=== PATIENT | female | born 1995 | race Caucasian/White ===

== ENCOUNTER 2019-12-25 07:41 | Outpatient (REF) | payer OTHER, SELFPAY | END 2019-12-25 07:42 | disposition home or self-care (01) | LOC: HO.LAB 07:41 | PROVIDERS: Visit Provider Internal Medicine | DX: Z20.828 Contact with and (suspected) exposure to other viral communicable diseases (principal) | CPT/HCPCS: 87635 ==

== ENCOUNTER 2020-12-28 19:05 | Emergency (ER) | payer OTHER, SELFPAY ==
[2020-12-28 19:14] VITALS: BP 108/70; PULSE 78; RESP 16; TEMP 36.8; O2SAT 100; BMI 20.9
--- NOTE | 2020-12-28 19:33 | ECG_ITS ---
Test Reason : CLEARANCE Blood Pressure : / mmHG Vent. Rate : 072 BPM Atrial Rate : 072 BPM P-R Int : 160 ms QRS Dur : 084 ms QT Int : 412 ms P-R-T Axes : 058 069 006 degrees QTc Int : 451 ms Normal sinus rhythm with sinus arrhythmia Normal ECG No previous ECGs available Referred By: Arlet Orellana Electronically Signed By:MARY REBOLLEDO MD
[2020-12-28 19:35] VITALS: RESP 15
[2020-12-28] MEDS: Haloperidol Lactate 5 MG/ML VIAL IM (19:35)
[2020-12-28] MEDS: LORazepam 2 MG/ML VIAL IM (19:35)
[2020-12-28 19:50] VITALS: RESP 17
--- NOTE | 2020-12-28 20:02 | ED_ITS ---
HPI - Psych General Chief Complaint: Psychiatric Symptoms Stated Complaint: depression/si Time Seen by Provider: 12/28/20 19:31 Source: patient, EMS and police Mode of arrival: EMS Limitations: no limitations and other (Anxiety and agitation) History of Present Illness HPI Narrative: 25-year-old female came in for psych evaluation. This is a 25-year-old female came in by police/ambulance for agitation, suicidal attempt patient overdosed on 8 pills of Seroquel 50 mg each of a total of 400 mg, patient brought in by the police/EMS patient is very agitated, combative and belligerent to the staff, patient needed to be Section 12 and required also chemical restraint with medication patient received 5 mg of Haldol and 2 mg of Ativan. Unable to obtain history from the patient at this point because of agitation Related Data Allergies Allergy/AdvReac Type Severity Reaction Status Date / Time No Known Allergies Allergy Verified 12/28/20 19:32 Review of Systems Review of Systems: All other systems are reviewed and are negative Constitutional: Reports as per HPI and Reports no additional constitutional complaints Eyes: Reports as per HPI and Reports no additional eye complaints Reports system reviewed and no additional complaints, except as documented Cardiovascular: Reports as per HPI and Reports no additional cardiovascular complaints Respiratory: Reports as per HPI and Reports no additional respiratory complaints Gastrointestinal: Reports as per HPI and Reports no additional gastrointestinal complaints Genitourinary: Reports no additional female genitourinary complaints Musculoskeletal: Reports no additional musculoskeletal complaints Skin/Breast: Reports system reviewed and no additional complaints, except as docu Psychiatric: Reports no additional psychiatric complaints Endocrine: Reports no additional endocrine complaints Hematologic/Lymphatic: Reports no additional hematologic/lymphatic complaints Allergic/Immunologic: Reports no additional allergic/immunologic complaints Reports system reviewed and no additional complaints, except as documented and Reports Abnormal speech present [facility] Social History Social History Advance Directives: No Advance Directives Information Provided: Yes Patient : No Physical Exam Vital Signs: Vital Signs: Last Vital Signs Temp 98.3 F 12/28/20 19:14 Pulse 78 12/28/20 19:14 Resp 16 12/28/20 20:35 BP 108/70 12/28/20 19:14 Pulse Ox 100 12/28/20 19:14 Body Mass Index 20.9 Vital signs have been reviewed as appeared to be correct. Blood pressure normal. Heart rate normal. Respiration rate normal. Temperature normal. Oxygen saturation normal. Appearance: Alert. Oriented X3. Agitated and anxious. Head: Normal external exam. Normocephalic. Atraumatic. No Foley signs noted. No raccoon eyes noted Eyes: PERRLA. EOMI. Conjunctiva and sclera normal. Eyelids normal. ENT: TM's Normal. Pharynx normal. Uvula midline. Moist mucous membranes. No trismus noted. No drooling noted. No muffled voice noted. Neck: Normal inspection. Neck supple. FROM. No adenopathy. Thyroid Normal. No meningeal signs. No neck mass noted. CVS: Normal heart rate and rhythm. Heart sound normal. No murmurs noted. Pulses normal throughout. Respiratory: No respiratory distress. Painless inspiration. Breath sounds normal. No wheezes/rales/rhonchi noted. Chest nontender. No accessory muscle usage noted or decreased air movement noted. Abdomen: Soft and nontender. Bowel sounds normal in all 4 quadrants. No distention noted. No organomegaly noted. No visible injury noted. Back: No CVA tenderness. Full range of motion noted. Skin: Skin warm and dry. Normal skin color. Normal skin turgor. No rashes/lesions/lacerations noted. Extremities: No lower extremity edema. Extremities exhibit normal range of motion. Extremities nontender. Neuro: Oriented X 3. Cranial nerve exam: II-XII are grossly intact No motor deficit. No sensory deficit. Reflexes normal. Patient Appearance: Appropriate Patient Orientation: Person, Place, Time and Situation Level of Consciousness: Awake, Appropriate and Alert Patient Behavior: Talkative, not Cooperative. Mood Description: Depressed. Affect Description: Flat. Patient Cognition Impaired: No Ability to Follow Directions: No Speech Pattern: Spontaneous Speech Memory Description: Intact Hallucinations: Not present. Delusions: Not Present Thought Process: Not Logical. Thought Content: Unremarkable Depressive Symptoms: Increased anxiety. Judgement: Poor. Course Course Course Narrative: Assessment and plan. 25-year-old female came in after attempt suicide by taking 8 pills of Seroquel 50 mg each, patient initially was combative, belligerent, in cooperative patient needed chemical restraint with Haldol/Ativan, patient now is calm and sleeping, poison control was consulted and input is appreciated patient can be medically cleared if she has normal EKG. Patient was observed under my medical observa tion patient remained hemodynamically stable. Consider BHN evaluation now. Reevaluation(s) Reevaluation #1: Physician observation started at 22:30 . Patient placed in physician observation because the patient needed more time for medication to work and to see BHN, patient's vital sign were stable, patient is alert and or iented , neuro exam unchanged, unremarkable rest of physical exam. MDM - Psych Medical Records Attestation: I reviewed the patient's medical records. Lab Data Attestation: I reviewed the patient's lab results. Result diagrams: 12/28/20 22:16 12/28/20 22:16 Labs: Lab Results 12/28/20 12/28/20 12/28/20 Range/Units 20:48 20:48 20:49 WBC (4.8-10.8) X10*3/uL RBC (4.20-5.50) X10*6/uL Hgb (12.0-16.0) g/dl Hct (37-47) % MCV (80-98) fL MCH (27.0-33.0) pg MCHC (31.0-35.0) g/dl RDW (11.0-16.0) % Plt Count (160-400) X10*3/uL MPV (9.4-12.3) fL Immature Gran % (Auto) (0.0-0.4) % Neut % (Auto) (45-73) % Lymph % (Auto) (20-40) % [place] % (Auto) (2-11) % Eos % (Auto) (0-4) % Baso % (Auto) (0-2) % Lymph # (Auto) (1.2-4.9) X10*3/uL [place] # (Auto) (0.1-1.2) X10*3/uL Eos # (Auto) (0.0-0.4) X10*3/uL Baso # (Auto) (0.0-0.2) X10*3/uL Abs Immat Gran (auto) (0.00-0.03) X10*3/uL Absolute Neuts (auto) (2.0-8.3) X10*3/uL Absolute Nucleated RBC (0.0-0.012) X10*3/uL Nucleated RBC % (auto) (0.0-0.2) /100WBC Urine Color Urine Appearance Urine pH (5.0-8.0) Ur Specific [place] (1.005-1.025) Urine Protein (NEG-TRACE) MG/DL Urine Glucose (UA) (NEG) MG/DL Urine Ketones (NEG) MG/DL Urine Blood (NEG) Urine Nitrite (NEG) Ur Leukocyte Esterase (NEG) Urine Test NEGATIVE (NEGATIVE) Urine Opiates Screen Not Detected (Not Detect) Urine Fentanyl Screen Not Detected (Not Detect) Ur Barbiturates Screen Not Detected (Not Detect) Ur Phencyclidine Scrn Not Detected (Not Detect) Ur Amphetamines Screen Not Detected (Not Detect) U Benzodiazepines Scrn Not Detected (Not Detect) Urine Cocaine Screen Not Detected (Not Detect) U Marijuana (THC) Screen POSITIVE H (Not Detect) Ethyl Alcohol mg/dL COVID-19 (ARMANDO) Negative (Negative) COVID-19 Clin Com See Note 12/28/20 12/28/20 12/28/20 Range/Units 20:49 22:16 22:16 WBC 11.8 H (4.8-10.8) X10*3/uL RBC 4.61 (4.20-5.50) X10*6/uL Hgb 13.1 (12.0-16.0) g/dl Hct 39.4 (37-47) % MCV 85.5 (80-98) fL MCH 28.4 (27.0-33.0) pg MCHC 33.2 (31.0-35.0) g/dl RDW 12.5 (11.0-16.0) % Plt Count 228 (160-400) X10*3/uL MPV 9.4 (9.4-12.3) fL Immature Gran % (Auto) 0.3 (0.0-0.4) % Neut % (Auto) 83.7 H (45-73) % Lymph % (Auto) 10.8 L (20-40) % [place] % (Auto) 4.7 (2-11) % Eos % (Auto) 0.3 (0-4) % Baso % (Auto) 0.2 (0-2) % Lymph # (Auto) 1.3 (1.2-4.9) X10*3/uL [place] # (Auto) 0.6 (0.1-1.2) X10*3/uL Eos # (Auto) 0.0 (0.0-0.4) X10*3/uL Baso # (Auto) 0.0 (0.0-0.2) X10*3/uL Abs Immat Gran (auto) 0.04 H (0.00-0.03) X10*3/uL Absolute Neuts (auto) 9.9 H (2.0-8.3) X10*3/uL Absolute Nucleated RBC 0.000 (0.0-0.012) X10*3/uL Nucleated RBC % (auto) 0.0 (0.0-0.2) /100WBC Urine Color YELLOW Urine Appearance CLEAR Urine pH 6.5 (5.0-8.0) Ur Specific [place] 1.015 (1.005-1.025) Urine Protein NEG (NEG-TRACE) MG/DL Urine Glucose (UA) NEG (NEG) MG/DL Urine Ketones NEG (NEG) MG/DL Urine Blood NEG (NEG) Urine Nitrite NEG (NEG) Ur Leukocyte Esterase NEG (NEG) Urine Test (NEGATIVE) Urine Opiates Screen (Not Detect) Urine Fentanyl Screen (Not Detect) Ur Barbiturates Screen (Not Detect) Ur Phencyclidine Scrn (Not Detect) Ur Amphetamines Screen (Not Detect) U Benzodiazepines Scrn (Not Detect) Urine Cocaine Screen (Not Detect) U Marijuana (THC) Screen (Not Detect) Ethyl Alcohol < 10 mg/dL COVID-19 (ARMANDO) (Negative) COVID-19 Clin Com ECG Data Interpretation: Normal sinus rhythm at 72 beats per minute, normal axis deviation, normal intervals, no ST-T changes. Discharge Plan Discharge Clinical Impression: Depression, Overdose
[2020-12-28 20:05] VITALS: RESP 16
--- NOTE | 2020-12-28 20:13 | PC.NURSE ---
Patient was brought in by EMS for suicidal attempt by overdosing on Serequel 50 mg 8 tablets. patient uncooperative, loud disruptive. violent, combative, physically assaultive towards staff member, provider tried to calm down, ordered Ativan 2 mg IM, Haldol 5 mg IM, and 4 point restraint at 1935. poison control notified, will continue to monitor.
[2020-12-28 20:20] VITALS: RESP 16
[2020-12-28 20:35] VITALS: RESP 16
[2020-12-28 21:06] LABS: UPreg QC Valid YES; Urine Pregnancy NEGATIVE (NEGATIVE)
[2020-12-28 21:06] LABS: Appearance Urine CLEAR; Color Urine YELLOW; Glucose Urine UA NEG (NEG); Leukocyte Esterase Urine NEG (NEG); Nitrite Urine NEG (NEG); PH 6.5 (5.0-8.0); Specific Gravity - Urine 1.015 (1.005-1.025); Urine Blood NEG (NEG); Urine Ketones NEG (NEG); Urine Protein NEG (NEG-TRACE)
[2020-12-28 21:21] LABS: COVID-19 Test Negative (Negative)
[2020-12-28 21:21] LABS: Amphetamine Screen Urine Not Detected (Not Detect); Barbiturates, Urine Not Detected (Not Detect); Benzodiazepines Screen Urine Not Detected (Not Detect); Cannabinoid Screen Urine POSITIVE (Not Detect); Cocaine Screen Urine Not Detected (Not Detect); Fentanyl, urine Not Detected (Not Detect); Opiate Screen Urine Not Detected (Not Detect); Phencyclidine Screen Urine Not Detected (Not Detect)
[2020-12-28 22:30] LABS: MANUAL DIFF FLAG NO
[2020-12-28 22:31] LABS: Basophils Percent Auto 0.2 % (0-2); Eosinophils Percent Auto 0.3 % (0-4); Hematocrit 39.4 % (37-47); Hemoglobin 13.1 g/dl (12.0-16.0); Imm Gran Abs Auto 0.04 X10*3/uL (0.00-0.03); Imm Gran Pct Auto 0.3 % (0.0-0.4); Lymphocytes Absolute Auto 1.3 X10*3/uL (1.2-4.9); Lymphocytes Percent Auto 10.8 % (20-40); Mean Corpuscular HGB Conc 33.2 g/dl (31.0-35.0); Mean Corpuscular Hemoglobin 28.4 pg (27.0-33.0); Mean Corpuscular Volume 85.5 fL (80-98); Mean Platelet Volume 9.4 fL (9.4-12.3); Monocytes Absolute Auto 0.6 X10*3/uL (0.1-1.2); Monocytes Percent Auto 4.7 % (2-11); Neutrophils Absolute Auto 9.9 X10*3/uL (2.0-8.3); Neutrophils Percent Auto 83.7 % (45-73); Platelet Count 228 X10*3/uL (160-400); Red Blood Count 4.61 X10*6/uL (4.20-5.50); Red Cell Distribution Width 12.5 % (11.0-16.0); White Blood Count 11.8 X10*3/uL (4.8-10.8)
[2020-12-28 22:50] LABS: Ethanol < 10 mg/dL
[2020-12-28 22:56] LABS: Alanine Aminotransferase 24 U/L (0-31); Alkaline Phosphatase 61 U/L (39-117); Anion Gap 13 (12-20); Aspartate Amino Transferase 29 U/L (5-31); Bilirubin Direct 0.4 mg/dL (0.0-0.5); Bilirubin Total 0.8 mg/dL (0.0-1.0); Blood Urea Nitrogen 14 mg/dL (9-16); Calcium 9.3 mg/dL (8.4-10.2); Carbon Dioxide 25 mmol/L (22-29); Chloride 108 mmol/L (96-108); Estimated Glomerular Filt Rate > 60; Glucose Random 119 mg/dL (60-115); Lipase 29 U/L (8-78); Potassium 3.7 mmol/L (3.3-5.1); Salicylate < 5.0 mg/dL (15-30); Sodium 142 mmol/L (135-145); Total Protein 6.7 g/dL (6.5-8.0)
[2020-12-29 00:25] LABS: Acetaminophen LAB < 1 mcg/mL (<30)
--- NOTE | 2020-12-29 05:27 | PC.NURSE ---
Patient slept through the night, no distress observed/reported, patient got seen by care team, no disposition at this time, patient is DIAZ f/u in the morning, will continue to monitor.
[2020-12-29 06:45] VITALS: BP 96/57; PULSE 72; RESP 16; TEMP 36.7; O2SAT 98
--- NOTE | 2020-12-29 14:57 | MHC.CARE ---
CARE Team received a call from [facility]. Pt does have case manger but has declined to engage thus far. CCA will reach out to Pt to see if she would like additional support.
== END 2020-12-29 14:26 | disposition home or self-care (01) ==
PROVIDERS: Emergency Provider Emergency Medicine
DX: T43.592A Poisoning by other antipsychotics and neuroleptics, intentional self-harm, initial encounter (principal); Y92.9 Unspecified place or not applicable; F32.9 Major depressive disorder, single episode, unspecified; R45.1 Restlessness and agitation; Z20.822 Contact with and (suspected) exposure to COVID-19
CPT/HCPCS: 36415; 80048; 80076; 80143; 80179; 80307; 81003; 81025; 82077; 83690; 85025; 87635; 93005; 96372; 99285; J2060

== ENCOUNTER 2021-06-17 12:03 | Emergency (ER) | payer OTHER, SELFPAY ==
--- NOTE | ~2021-06-17 | XR_ITS ---
EXAMINATIONS: XR wrist LT w scaphoid CLINICAL INFORMATION: Reason for Exam pain, fall outstretched hand COMPARISON: None VIEWS: Frontal lateral and oblique scaphoid view FINDINGS: There is no evidence of acute fracture or dislocation. The distal radius is intact. The radiocarpal, intercarpal and carpal/metacarpal joints are normal. Ulnar styloid is intact. The scapholunate joint is normal. The lunate is properly positioned. The zzifuy-icqy-qlxnndnd access is normal. The scaphoid bone is a properly articulating. XR/XR wrist LT w scaphoid IMPRESSION: No fracture.
[2021-06-17 12:12] VITALS: BP 133/83; PULSE 119; RESP 16; TEMP 37.2; O2SAT 99; BMI 28.0
--- NOTE | 2021-06-17 12:54 | ED.URI ---
HPI - URI/Sore Throat General Chief Complaint: Nausea/Vomiting/Diarrhea Stated Complaint: Flu symptoms/L wrist pain Time Seen by Provider: 06/17/21 12:40 Source: patient Mode of arrival: ambulatory Limitations: no limitations History of Present Illness HPI Narrative: Patient is a 25-year-old female past medical history of mild intermittent asthma. She presents emergency department for evaluation of intermittently productive cough, shortness of breath, tactile fevers, and nausea vomiting for 4 days. She has been able to tolerate fluids for the past 2 days without vomiting. She reports her significant other became ill around the same time and had symptoms for 2 days. She had at home COVID-19 test which she reports was negative 3 days ago. She denies headache, ear pain, sore throat, chest pain, abdominal pain, diarrhea, constipation, dysuria, urinary frequency/hesitancy/urgency, possibility of , generalized weakness. Additionally, she reports that she fell last night, tripped over her blanket while getting out of bed landing on to her left hand which was outstretched. She has some mild swelling and pain to the left wrist particularly with flexion and extension Related Data Home Medications Medication Instructions Recorded Confirmed guanfacine 1 mg tablet 1 mg PO DAILY 12/29/20 12/29/20 hydroxyzine HCl 25 mg tablet 25 mg PO BID PRN 12/29/20 12/29/20 lamotrigine 150 mg tablet 150 mg PO DAILY 12/29/20 12/29/20 multivitamin 1 tab PO DAILY 12/29/20 12/29/20 quetiapine 25 mg tablet 50 mg PO BEDTIME PRN 12/29/20 12/29/20 quetiapine 50 mg tablet,extended 50 mg PO BEDTIME 12/29/20 12/29/20 release 24 hr Previous Rx's Medication Instructions Recorded albuterol sulfate 90 mcg/actuation 2 puff INHALATION Q4-6H PRN #6.7 g 06/17/21 aerosol inhaler Allergies Allergy/AdvReac Type Severity Reaction Status Date / Time No Known Allergies Allergy Verified 05/25/21 14:11 Review of Systems Review of Systems: Constitutional : Positive tactile Fever, No Chills ENT/Mouth : No Hoarseness, No sore throat, No Rhinorrhea Eyes: No Redness, No Discharge, No Vision Changes Cardiovascular : No Chest Pain, positive SOB, no Dyspnea on Exertion, No Edema Respiratory : positive Cough, No Sputum, no Wheezing, Gastrointestinal : Positive Nausea, positive Vomiting, No Diarrhea, No abdominal Pain Genitourinary : No Dysuria, No Hematuria Musculoskeletal : Positive left wrist pain Skin : No rash Neuro : No Weakness, No Numbness, No Headache Psych : No anxiety, depression Heme/Lymph: No Bruising, No Bleeding Endocrine : No Polyuria, No Polydipsia Yes all other systems are reviewed and are negative [facility] Past Medical History Attestation statement: The following information was validated with the patient. Source: old records reviewed Social History Social History Alcohol intake: never Patient Tobacco Use Status: Never used Tobacco Use of substances other than those prescribed or required for medical reasons: No Advance Directives: No Advance Directives Information Provided: No Patient : No Physical Exam Vital Signs: Vital Signs: Last Vital Signs Temp 98.3 F 06/17/21 13:25 Pulse 81 06/17/21 13:25 Resp 18 06/17/21 13:25 BP 112/78 06/17/21 13:25 Pulse Ox 99 06/17/21 13:25 BMI result Body Mass Index 28.0 Vital signs have been reviewed and appeared to be correct. Blood pressure normal.? Initial tachycardia during triage 119, pulse 86 during exam. Respiration rate normal. Temperature normal.? Oxygen saturation normal. Appearance: Alert.?Oriented to person, place and time. No acute distress.?Normal affect. Eyes: Pupils equal, round and reactive to light.? ENT: Pharynx normal.?? Neck: Normal inspection.? Neck supple.?? CVS: Heart sounds normal. Normal heart rate and rhythm.? Pulses normal.?? Respiratory: No respiratory distress.? Lung sounds clear to auscultation bilaterally?? Abdomen: Soft and non-tender. Normoactive bowel sounds. No pulsatile mass.?? Skin: Skin warm and dry.? Normal skin color.? Normal skin turgor.?? Extremities: No lower extremity edema.? Decreased AROM with flexion-extension of left wrist, palpable 2+ radial pulse, neurologically intact Neuro: Moves all extremities spontaneously. Sensation intact bilaterally. No focal neuro deficits. Ambulates with normal steady gait. Course Course Course Narrative: Patient is a 25-year-old female being evaluated for upper respiratory and GI symptoms. She is well appearing, nontoxic, afebrile. Initial tachycardia 119 during triage however during exam heart rate down to 86. Given sick exposure, will obtain COVID-19 and influenza testing. Regarding fall on outstretched hand and pain to left wrist, with decreased AROM of flexion and extension were obtained XR to evaluate for fracture. Reevaluation(s) Reevaluation #1: Influenza a testing is positive, COVID-19 is negative. Discussed plan care for discharge home, conservative treatment, discussed reasons to return back to the emergency department, patient is agreeable with plan of care. X- ray of the left wrist is unremarkable, no acute fracture dislocation, we did discuss that should her pain persist over the next 1-2 weeks she should follow-up with her primary care provider for repeat imaging. MDM - URI/Sore Throat Medical Records Attestation: I reviewed the patient's medical records. Lab Data Attestation: I reviewed the patient's lab results. Labs: Lab Results 06/17/21 06/17/21 Range/Units 13:22 13:22 COVID-19 (ARMANDO) Negative (Negative) COVID-19 Clin Com See Note Influenza Type A (LAINE) Positive A (Negative) Influenza Type B (LAINE) Negative (Negative) Influenza A & B Note See Note Imaging Data L wrist XR: Radiologist's impression: XR/XR wrist LT w scaphoid IMPRESSION: No fracture. Discharge Plan Discharge Clinical Impression: Influenza A Patient Disposition: Home, Self-Care Instructions: Influenza (ED) Additional Instructions: Please return to the emergency department with any new or worsening symptoms or concerns. Prescriptions: New albuterol sulfate 90 mcg/actuation HFA aerosol inhaler 2 puff inhalation Q4-6H PRN (Reason: shortness of breath or wheezing) Qty: 6.7 0RF No Action multivitamin [Multi-Vitamin] Tablet 1 tab PO DAILY 0RF quetiapine 25 mg Tablet 50 mg PO BEDTIME PRN (Reason: Anxiety) 0RF lamotrigine 150 mg Tablet 150 mg PO DAILY 0RF guanfacine [Tenex] 1 mg Tablet 1 mg PO DAILY 0RF hydroxyzine HCl 25 mg Tablet 25 mg PO BID PRN (Reason: Anxiety) 0RF quetiapine 50 mg Tablet Extended Release 24 Hr 50 mg PO BEDTIME 0RF Interventions: ED Discharge Assessment Last Done: 06/17/21 14:09 Discharge Date/Time: 06/17/21 14:09
[2021-06-17 13:25] VITALS: BP 112/78; PULSE 81; RESP 18; TEMP 36.8; O2SAT 99
--- NOTE | 2021-06-17 13:26 | PC.NURSE ---
patient a&ox3, vss, covid swabs obtained, pt denies pain states her wrist is uncomfortable and her chest is uncomfortable when she coughs- however denies actual pain, call spicer within reach, will continue to monitor
[2021-06-17 13:46] LABS: COVID-19 Test Negative (Negative); IDNOW Serial# 16C4AD1C
[2021-06-17 13:48] LABS: IDNOW Serial# 55D5AD1C; Influenza A Positive (Negative); Influenza B2 Negative (Negative)
== END 2021-06-17 14:09 | disposition home or self-care (01) ==
PROVIDERS: Nurse Practitioner Family; Emergency Provider Emergency Medicine; PCP Internal Medicine
DX: J11.1 Influenza due to unidentified influenza virus with other respiratory manifestations (principal); R50.9 Fever, unspecified; M25.532 Pain in left wrist
CPT/HCPCS: 73110; 87502; 87635; 99283; 99284

== ENCOUNTER 2022-01-17 12:28 | Emergency (ER) | payer OTHER, SELFPAY ==
--- NOTE | ~2022-01-17 | XR_ITS ---
EXAMINATION: XR SHOULDER, LEFT CLINICAL INFORMATION: Pain after falling COMPARISON: None TECHNIQUE: AP external rotation, Grashey, scapular Y, and axillary views of the left shoulder. FINDINGS: Nondisplaced fracture noted through the greater tuberosity. The left shoulder however is not dislocated. No other fractures are seen. The AC joint is intact. XR/XR shoulder LT min 2V IMPRESSION: Fracture through the greater tuberosity as described.
[2022-01-17 14:36] VITALS: BP 110/76; PULSE 84; RESP 16; TEMP 37.4; O2SAT 99; BMI 29.8
--- NOTE | 2022-01-17 14:39 | ED_ITS ---
HPI - Extremity Problem General Chief complaint: Extremity Injury, Upper Stated complaint: L Shoulder Injury 01/17/22 Time Seen by Provider: 01/17/22 15:24 Related Data Home Medications Medication Instructions Recorded Confirmed guanfacine 1 mg tablet 1 mg PO DAILY 12/29/20 12/29/20 hydroxyzine HCl 25 mg tablet 25 mg PO BID PRN Anxiety 12/29/20 12/29/20 lamotrigine 150 mg tablet 150 mg PO DAILY 12/29/20 12/29/20 multivitamin 1 tab PO DAILY 12/29/20 12/29/20 quetiapine 25 mg tablet 50 mg PO BEDTIME PRN Anxiety 12/29/20 12/29/20 quetiapine 50 mg tablet,extended 50 mg PO BEDTIME 12/29/20 12/29/20 release 24 hr Previous Rx's Medication Instructions Recorded albuterol sulfate 90 mcg/actuation 2 puff inhalation Q4-6H PRN 06/17/21 aerosol inhaler shortness of breath or wheezing #6.7 grams ibuprofen 600 mg tablet 600 mg PO Q8H PRN pain #30 tabs 01/17/22 oxycodone 5 mg tablet 5 mg PO Q8H PRN pain #8 tabs 01/17/22 Allergies Allergy/AdvReac Type Severity Reaction Status Date / Time No Known Allergies Allergy Verified 05/25/21 14:11 [facility] Social History Social History Alcohol intake: never Patient Tobacco Use Status: Never used Tobacco Advance Directives: No Advance Directives Information Provided: Yes Physical Exam Vital Signs: Vital Signs: Last Vital Signs Temp 99.4 F 01/17/22 14:36 Pulse 84 01/17/22 14:36 Resp 16 01/17/22 14:36 BP 110/76 01/17/22 14:36 Pulse Ox 99 01/17/22 14:36 O2 Del Method 01/17/22 14:36 BMI result Body Mass Index 29.8 Course Course Course Narrative: RYLIE. Patient presents to the ED for left shoulder pain. patient states while trying to break her fall unto the wall she put her shoulder out unto the wall and it bended in an awkward position. patient tripeed over blanket. patient den ies hitting head, loss of consisouness, or falling to the ground. patient sent for xray Medications Administered Discontinued Medications Generic Name Dose Route Start Last Admin Trade Name Freq PRN Reason Stop Dose Admin Ibuprofen 800 mg 01/17/22 14:41 01/17/22 15:19 Ibuprofen 800 Mg Tablet PO 01/17/22 14:42 800 mg ONCE ONE Administration Discharge Plan Discharge Clinical Impression: Closed fracture of greater tuberosity of humerus Patient Disposition: Home, Self-Care Instructions: Arm Fracture in Adults (ED) Additional Instructions: rest, elevation, sling for comfort Prescriptions: New ibuprofen 600 mg tablet 600 mg PO Q8H PRN (Reason: pain) Qty: 30 0RF oxycodone 5 mg tablet 5 mg PO Q8H PRN (Reason: pain) Qty: 8 0RF Rx Instructions: Partial Fill upon patient request. No Action multivitamin [Multi-Vitamin] Tablet 1 tab PO DAILY quetiapine 25 mg Tablet 50 mg PO BEDTIME PRN (Reason: Anxiety) lamotrigine 150 mg Tablet 150 mg PO DAILY guanfacine [Tenex] 1 mg Tablet 1 mg PO DAILY hydroxyzine HCl 25 mg Tablet 25 mg PO BID PRN (Reason: Anxiety) quetiapine 50 mg Tablet Extended Release 24 Hr 50 mg PO BEDTIME albuterol sulfate 90 mcg/actuation HFA aerosol inhaler 2 puff inhalation Q4-6H PRN (Reason: shortness of breath or wheezing) Qty: 6.7 0RF Referrals: [facility] [Provider Group] - 3 days Stand Alone Forms: Work/School Release Interventions: ED Discharge Assessment Last Done: 01/17/22 16:36 Discharge Date/Time: 01/17/22 16:37
[2022-01-17] MEDS: Ibuprofen 800 MG TABLET PO (15:19)
--- OUTSIDE RECORDS SUMMARY | 2022-01-17 15:21 | XMS_ITS | Continuity of Care Document ---
:1995 Author Organization [facility] [address]ter Address [address] [place] [address]- Care Team Providers Name Role Phone Natalee Olmedo MD, Marcelo Primary Care Physician Encounter [facility] Date(s): 03/23/21 - 04/23/[address] [address]- Attending Physician: Vickey Guerrero MD Referring Physician: Not on Staff, Referring MD Allergies, Adverse Reactions, Alerts Substance Reaction Severity Status shellfish Active Shrimp Active Medications QUEtiapine 100 mg oral tablet 100 mg, 1, tablet, By Mouth, Daily at bedtime, # 16 tablet, Refills 0, Tot. Refills 0, Maintenance, 01/31/21 11:11:00 EST, Route to Pharmacy Electronically, [facility], Partial fill upon patient request if the prescription is for... Start Date: 01/31/21 Status: OrderedQUEtiapine 100 mg oral tablet 100 mg, 1, tablet, By Mouth, Every 4 hours, PRN, # 16 tablet, Refills 0, Tot. Refills 0, Maintenance, Agitation, 01/31/21 11:11:00 EST, Route to Pharmacy Electronically, [facility], Partial fill upon patient request if the prescri... Start Date: 01/31/21 Status: OrderedQUEtiapine 50 mg oral tablet 1 tablet = 50 mg, By Mouth, 2 times a day, take at 0900 and 1500, # 32 tablet, 0 Refills, Maintenance, 01/31/21 11:13:00 EST, Tablet, [facility], Partial fill upon patient request if the prescription is for a schedule II opioid dr... Start Date: 01/31/21 Status: Ordered
--- OUTSIDE RECORDS SUMMARY | 2022-01-17 15:21 | XMS_ITS | Continuity of Care Document ---
:1995 Author Organization [facility] Inpatient [facility] Address [address] [place] [address]- Care Team Providers Name Role Phone Tom MCWILLIAMS, Jewell Feliciano Primary Care Physician Encounter [facility] Date(s): 01/26/21 - 01/31/21 [facility] Inpatient Psych[facility]ry [address] [place] [address]- Discharge Disposition: A-D/C Home Attending Physician: Vickey Guerrero MD Admitting Physician: Vickey Guerrero MD Referring Physician: Vickey Guerrero MD Allergies, Adverse Reactions, Alerts Substance Reaction Severity Status shellfish Active Shrimp Active Medications QUEtiapine 100 mg oral tablet 100 mg, 1, tablet, By Mouth, Daily at bedtime, # 16 tablet, Refills 0, Tot. Refills 0, Maintenance, 01/31/21 11:11:00 EST, Route to Pharmacy Electronically, [facility], Partial fill upon patient request if the prescription is for... Start Date: 01/31/21 Status: OrderedQUEtiapine 100 mg oral tablet 100 mg, 1, tablet, By Mouth, Every 4 hours, PRN, # 16 tablet, Refills 0, Tot. Refills 0, Maintenance, Agitation, 01/31/21 11:11:00 EST, Route to Pharmacy Electronically, [facility], Partial fill upon patient request if the prescri... Start Date: 01/31/21 Status: OrderedQUEtiapine 50 mg oral tablet 1 tablet = 50 mg, By Mouth, 2 times a day, take at 0900 and 1500, # 32 tablet, 0 Refills, Maintenance, 01/31/21 11:13:00 EST, Tablet, [facility], Partial fill upon patient request if the prescription is for a schedule II opioid drYahir.. Start Date: 01/31/21 Status: Ordered Vital Signs Most recent to oldest 1 2 3 [Reference Range]: Height 170 cm 170 cm 170 cm (01/31/21 9:16 AM) (01/30/21 8:57 PM) (01/30/21 8:20 AM) Weight 78.6 kg (01/26/21 1:30 PM) Oxygen Saturation [94-100 100 % 99 % 100 % %] (01/31/21 9:16 AM) (01/30/21 8:57 PM) (01/30/21 8:20 AM) Pulse Rate [55-90 bpm] 84 bpm 89 bpm 104 bpm (01/31/21 9:16 AM) (01/30/21 8:57 PM) *H* (01/30/21 8:20 A M) Body Mass Index 27.2 [18.5-24.99] *H* (01/26/21 1:30 PM) Blood Pressure 115/75 mm Hg 115/70 mm Hg 108/75 mm Hg [90-138/55-84 mm Hg] (01/31/21 9:16 AM) (01/30/21 8:57 PM) (01/10 05/01 8:20 AM) Respiratory Rate [16-30 18 br/min 18 br/min 18 br/mi n br/min] (01/31/21 9:39 AM) (01/31/21 9:16 AM) (01/30/21 11:07 PM) Temperature [96.8-100.4 97.7 DegF 97.2 DegF 98.5 Deg F DegF] (01/31/21 9:16 AM) (01/30/21 8:57 PM) (01/30/21 8:20 AM) Mode of Delivery (Oxygen) Room air Room air Room a ir (01/31/21 9:16 AM) (01/30/21 8:57 PM) (01/29/21 10:41 PM) Blood pressure sites Arm, left Arm, left Arm, left (01/31/21 9:16 AM) (01/30/21 8:57 PM) (01/30/21 8:20 AM) Temperature Route Temporal Tympanic Femoral (01/31/21 9:16 AM) (01/30/21 8:57 PM) (01/30/21 8:20 AM) Dry Weight 78.6 kg (01/26/21 1:30 PM) Sensory deficits None (01/26/21 1:30 PM)
--- OUTSIDE RECORDS SUMMARY | 2022-01-17 15:21 | XMS_ITS | Continuity of Care Document ---
:1995 Author Organization [facility] Address [address] [place] [address]- Care Team Providers Name Role Phone Tom MCWILLIAMS, Jewell Feliciano Primary Care Physician Encounter [facility] Date(s): 01/25/21 - 01/26/[address] [address]- Discharge Disposition: A-D/C Home Attending Physician: Amina Valladares MD Admitting Physician: Delano Jara MD Referring Physician: Not on Staff, Referring MD Allergies, Adverse Reactions, Alerts Substance Reaction Severity Status shellfish Active Shrimp Active Medications melatonin 3 mg oral tablet 1 tablet = 3 mg, By Mouth, Daily at bedtime, PRN for insomnia, Take 1 - 2 tablets by mouth daily at bedtime one hour before sleep, # 30 tablet, 0 Refills, Maintenance, Tablet Start Date: 03/20/12 Status: Ordered Vital Signs Most recent to oldest 1 2 3 [Reference Range]: Height 170 cm 170 cm 170 cm (01/26/21 5:49 AM) (01/26/21 1:51 AM) (01/25/21 8:36 PM) Weight 78.6 kg 56.8 kg (01/25/21 8:36 PM) (01/25/21 3:05 PM) Oxygen Saturation [94-100 %] 100 % 100 % 100 % (01/26/21 5:49 AM) (01/26/21 1:51 AM) (01/25/21 8:36 PM) Pulse Rate [55-90 bpm] 99 bpm 80 bpm 81 bpm *H* (01/26/21 1:51 AM) (01/25/21 8:3 6 PM) (01/26/21 5:49 AM) Body Mass Index [18.5-24.99] 27.2 *H* (01/25/21 8:36 PM) Blood Pressure [90-138/55-84 114/63 mm Hg 119/72 mm Hg 98/ 63 mm Hg mm Hg] (01/26/21 5:49 AM) (01/26/21 1:51 AM) (01/25/21 8:36 PM) Respiratory Rate [16-30 18 br/min 18 br/min 18 br/mi n br/min] (01/26/21 5:49 AM) (01/26/21 1:51 AM) (01/25/21 8:36 PM) Temperature [96.8-100.4 97.9 DegF 98.5 DegF 97.9 Deg F DegF] (01/26/21 5:49 AM) (01/26/21 1:51 AM) (01/25/21 8:36 PM) Mode of Delivery (Oxygen) Room air Room air Room a ir (01/26/21 5:49 AM) (01/26/21 1:51 AM) (01/25/21 8:36 PM) Blood pressure sites Arm, right Arm, right Arm, left (01/26/21 5:49 AM) (01/26/21 1:51 AM) (01/25/21 8:36 PM) Temperature Route Oral Oral Axillary (01/26/21 5:49 AM) (01/26/21 1:51 AM) (01/25/21 8:36 PM) Dry Weight 56.8 kg (01/25/21 3:05 PM)
--- NOTE | 2022-01-17 15:47 | ED.EXTPRO ---
HPI - Extremity Problem General Chief complaint: Extremity Injury, Upper Stated complaint: L Shoulder Injury 01/17/22 Time Seen by Provider: 01/17/22 15:24 Source: patient Mode of arrival: ambulatory Limitations: no limitations History of Present Illness HPI Narrative: 26-year-old female [id number] here with left shoulder pain after fall which occurred just prior to arrival. Patient reports she was sitting on the side of her bed with her legs crossed and a blanket underneath them. She tried the that quickly and then realized her legs were caught causing her to fall forward throwing her left arm out to catch herself causing a hyperextension of the extremity. Patient denies head strike or loss of consciousness. Patient denies any associated weakness, numbness, tingling of the extremity. Related Data Home Medications Medication Instructions Recorded Confirmed guanfacine 1 mg tablet 1 mg PO DAILY 12/29/20 12/29/20 hydroxyzine HCl 25 mg tablet 25 mg PO BID PRN Anxiety 12/29/20 12/29/20 lamotrigine 150 mg tablet 150 mg PO DAILY 12/29/20 12/29/20 multivitamin 1 tab PO DAILY 12/29/20 12/29/20 quetiapine 25 mg tablet 50 mg PO BEDTIME PRN Anxiety 12/29/20 12/29/20 quetiapine 50 mg tablet,extended 50 mg PO BEDTIME 12/29/20 12/29/20 release 24 hr Previous Rx's Medication Instructions Recorded albuterol sulfate 90 mcg/actuation 2 puff inhalation Q4-6H PRN 06/17/21 aerosol inhaler shortness of breath or wheezing #6.7 grams ibuprofen 600 mg tablet 600 mg PO Q8H PRN pain #30 tabs 01/17/22 oxycodone 5 mg tablet 5 mg PO Q8H PRN pain #8 tabs 01/17/22 Allergies Allergy/AdvReac Type Severity Reaction Status Date / Time No Known Allergies Allergy Verified 05/25/21 14:11 Review of Systems Review of Systems: Yes all other systems are reviewed and are negative Constitutional: Constitutional: Reports no additional constitutional complaints, Denies body ache(s), Denies chills, Denies fever(s), Denies headache(s) and Denies weakness Eyes: Eyes: Reports no additional eye complaints and Denies change in vision ENT: Reports system reviewed and no additional complaints, except as documented, Denies dizziness, Denies headache(s), Denies nasal congestion, Denies nasal discharge and Denies neck pain Cardiovascular: Cardiovascular: Reports no additional cardiovascular complaints, Denies chest pain, Denies leg edema and Denies dyspnea Respiratory: Respiratory: Reports no additional respiratory complaints, Denies cough and Denies dyspnea Gastrointestinal: Gastrointestinal: Reports no additional gastrointestinal complaints, Denies abdominal pain, Denies diarrhea, Denies nausea and Denies vomiting Genitourinary: Genitourinary: Reports no additional female genitourinary complaints and Denies urinary incontinence Musculoskeletal: Musculoskeletal: Reports no additional musculoskeletal complaints, Denies back pain, Reports arthralgias, Reports joint swelling, Reports limited range of motion, Denies neck pain, Denies numbness and Denies tingling Integumentary/Breasts: Skin/Breast: Reports system reviewed and no additional complaints, except as docu and Denies rash Neurologic: Reports system reviewed and no additional complaints, except as documented, Denies Abnormal speech present, Denies dizziness, Denies headache(s), Denies numbness, Denies tingling and Denies weakness [facility] Past Medical History Attestation statement: The following information was validated with the patient. Source: old records reviewed and nursing notes reviewed Social History Social History Alcohol intake: never Patient Tobacco Use Status: Never used Tobacco Advance Directives: No Advance Directives Information Provided: Yes Physical Exam Vital Signs: Vital Signs: Last Vital Signs Temp 99.4 F 01/17/22 14:36 Pulse 84 01/17/22 14:36 Resp 16 01/17/22 14:36 BP 110/76 01/17/22 14:36 Pulse Ox 99 01/17/22 14:36 O2 Del Method 01/17/22 14:36 BMI result Body Mass Index 29.8 Const: General: cooperative, healthy appearing, comfortable and no acute distress Orientation/consciousness: patient oriented x3 Limitations: no limitations HEENT: Head: Yes normal to inspection Ears: hearing grossly normal bilaterally General nose exam: Normal external nose present Face and sinus: Yes normal facial exam Mouth: Normal oral and palatal mucosa present Throat: Yes posterior oropharynx normal Eyes: General: appearance normal, both eyes and all related structures Pupils: Equal, round and reactive pupils present Neck: Neck: Yes normal visual inspection Chest: Chest palpation & inspection: normal inspection of the chest Resp: Effort & Inspection: normal respiratory effort Auscultation: clear to auscultation bilaterally Cardio: Rate: regular rate Rhythm: regular rhythm Peripheral pulses: Peripheral pulses 2+ throughout GI: Inspection: Yes normal to inspection Palpation (GI): Soft to palpation and nontender Auscultation: normal bowel sounds Back/Spine/Pelvis: Thoracic/Lumbar Spine: thoracic and lumbar spine normal to inspection Skin: General skin exam: no rashes or lesions noted Neuro: General: patient oriented x3, no focal motor deficits and normal sensation to monofilament Cranial nerves: Yes Equal, round and reactive pupils present Cognition (Neuro): normal cognition Speech: No Abnormal speech present Gait exam (Neuro): Normal gait present Motor exam (neuro): 5/5 motor strength present throughout Extrem: Other: There is tenderness the left proximal humerus with pain with abduction of the extremity. Neurovascularly intact distally. Palpable radial and ulnar pulses. Sensation is normal. General: Yes normal to inspection Course Course Course Narrative: x-rays show FINDINGS: Nondisplaced fracture noted through the greater tuberosity. The left shoulder however is not dislocated. No other fractures are seen. The AC joint is intact.? XR/XR shoulder LT min 2V IMPRESSION: Fracture through the greater tuberosity as described. No dislocation. Placed in sling. Reviewed LETITIA f/u with orthopedics. 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 On exam patient has tenderness over the left proximal humerus with limited range of motion due to pain. Will check x-rays, provide analgesia Consider strain, fracture, dislocation Medical Records Attestation: I reviewed the patient's medical records. Imaging Data shoulder x-ray: Attestation: I personally reviewed and interpreted this imaging study as follows: Radiologist's impression: [address] [address] XRay Report Signed Patient: Connie Amaya MR#: [id number] : 1995 Acct:[id number] Age/Sex: 26 / F ADM Date: 01/17/22 Loc: HO.ED Attending Dr: Ordering Physician: Vj Logan Date of Service: 01/17/22 Procedure(s): XR shoulder LT min 2V Accession Number(s): [id number] cc: Vj Logan~ EXAMINATION: XR SHOULDER, LEFT CLINICAL INFORMATION: Pain after falling? COMPARISON: None? TECHNIQUE: AP external rotation, Grashey, scapular Y, and axillary views of the left shoulder. FINDINGS: Nondisplaced fracture noted through the greater tuberosity. The left shoulder however is not dislocated. No other fractures are seen. The AC joint is intact.? XR/XR shoulder LT min 2V IMPRESSION: Fracture through the greater tuberosity as described. Procedures Procedure Narrative Procedure Narrative: sling Discharge Plan Discharge Clinical Impression: Closed fracture of greater tuberosity of humerus Patient Disposition: Home, Self-Care Instructions: Arm Fracture in Adults (ED) Additional Instructions: rest, elevation, sling for comfort Prescriptions: New ibuprofen 600 mg tablet 600 mg PO Q8H PRN (Reason: pain) Qty: 30 0RF oxycodone 5 mg tablet 5 mg PO Q8H PRN (Reason: pain) Qty: 8 0RF Rx Instructions: Partial Fill upon patient request. No Action multivitamin [Multi-Vitamin] Tablet 1 tab PO DAILY quetiapine 25 mg Tablet 50 mg PO BEDTIME PRN (Reason: Anxiety) lamotrigine 150 mg Tablet 150 mg PO DAILY guanfacine [Tenex] 1 mg Tablet 1 mg PO DAILY hydroxyzine HCl 25 mg Tablet 25 mg PO BID PRN (Reason: Anxiety) quetiapine 50 mg Tablet Extended Release 24 Hr 50 mg PO BEDTIME albuterol sulfate 90 mcg/actuation HFA aerosol inhaler 2 puff inhalation Q4-6H PRN (Reason: shortness of breath or wheezing) Qty: 6.7 0RF Referrals: [facility] [Provider Group] - 3 days Stand Alone Forms: Work/School Release
== END 2022-01-17 16:37 | disposition home or self-care (01) ==
PROVIDERS: Emergency Provider Emergency Medicine; PCP Internal Medicine
DX: S42.252A Displaced fracture of greater tuberosity of left humerus, initial encounter for closed fracture (principal); W08.XXXA Fall from other furniture, initial encounter; Y93.9 Activity, unspecified; Y92.009 Unspecified place in unspecified non-institutional (private) residence as the place of occurrence of the external cause; Y99.9 Unspecified external cause status; Z79.899 Other long term (current) drug therapy
CPT/HCPCS: 73030; 99283

== ENCOUNTER 2022-02-05 07:52 | Outpatient (REF) | payer OTHER, SELFPAY | END 2022-02-05 07:53 | disposition home or self-care (01) | LOC: HO.HOSX 07:52 | PROVIDERS: Visit Provider Physician Assistant | DX: Z13.89 Encounter for screening for other disorder (principal) ==

== ENCOUNTER 2023-11-14 13:18 | Outpatient (REF) | payer OTHER, SELFPAY ==
[2023-11-14 17:32] LABS: HCG Quantitative < 2 mIU/mL; TSH reflex Free T4 1.03 uIU/mL (0.32-4.0)
[2023-11-17 08:47] LABS: Prolactin 10.3 ng/mL
== END 2023-11-14 13:19 | disposition home or self-care (01) ==
LOC: HO.HHCL 13:18
PROVIDERS: Visit Provider Advanced Practice Midwife
DX: N92.6 Irregular menstruation, unspecified (principal)
CPT/HCPCS: 36415; 84146; 84443; 84702

== ENCOUNTER 2024-01-27 11:13 | Outpatient (REF) | payer OTHER, SELFPAY ==
[2024-01-27 13:20] LABS: MANUAL DIFF FLAG NO
[2024-01-27 13:30] LABS: Basophils Absolute Auto 0.1 X10*3/uL (0.0-0.2); Basophils Percent Auto 0.4 % (0-2); Eosinophils Absolute Auto 0.6 X10*3/uL (0.0-0.4); Eosinophils Percent Auto 4.3 % (0-4); Hemoglobin 13.8 g/dl (12.0-16.0); Imm Gran Abs Auto 0.06 X10*3/uL (0.00-0.03); Imm Gran Pct Auto 0.5 % (0.0-0.4); Lymphocytes Absolute Auto 2.8 X10*3/uL (1.2-4.9); Lymphocytes Percent Auto 21.1 % (20-40); Mean Corpuscular HGB Conc 33.7 g/dl (31.0-35.0); Mean Corpuscular Hemoglobin 29.7 pg (27.0-33.0); Mean Corpuscular Volume 88.2 fL (80.0-98.0); Mean Platelet Volume 9.7 fL (9.4-12.3); Monocytes Absolute Auto 0.8 X10*3/uL (0.1-1.2); Monocytes Percent Auto 5.9 % (2-11); Neutrophils Absolute Auto 8.9 x10*3/uL (2.0-8.3); Neutrophils Percent Auto 67.8 % (45-73); Platelet Count 326 X10*3/uL (160-400); Red Blood Count 4.65 X10*6/uL (4.20-5.50); Red Cell Distribution Width 12.4 % (11.0-16.0); White Blood Count 13.1 X10*3/uL (4.8-10.8)
[2024-01-27 13:46] LABS: Anion Gap 11 (12-20); Blood Urea Nitrogen 15 mg/dL (9-16); Calcium 9.6 mg/dL (8.4-10.2); Carbon Dioxide 24 mmol/L (22-29); Chloride 107 mmol/L (96-108); Estimated Glomerular Filt Rate > 60; Glucose Random 82 mg/dL (60-115); Sodium 138 mmol/L (135-145)
[2024-01-27 14:08] LABS: HCG Quantitative < 2 mIU/mL; TSH reflex Free T4 0.66 uIU/mL (0.32-4.0)
[2024-01-28 06:34] LABS: CT PCR NOT DETECTED (Not Detect.); NG PCR NOT DETECTED (Not Detect.)
[2024-01-28 13:38] LABS: Bacterial Vaginosis PCR NEGATIVE (Negative); Candida Group PCR NOT DETECTED (Not Detect); Candida glab krusei PCR NOT DETECTED (Not Detect); Trichomonas vaginalis PCR NOT DETECTED (Not Detect)
== END 2024-01-27 11:14 | disposition home or self-care (01) ==
LOC: HO.HHCL 11:13
PROVIDERS: Visit Provider Internal Medicine
DX: R10.2 Pelvic and perineal pain (principal)
CPT/HCPCS: 0352U; 36415; 80048; 84443; 84702; 85025; 87491; 87591

== ENCOUNTER 2024-12-28 15:23 | Outpatient (REF) | payer OTHER, SELFPAY ==
[2024-12-28 18:23] LABS: MANUAL DIFF FLAG NO
[2024-12-28 18:36] LABS: Hematocrit 42.0 % (37.0-47.0); Hemoglobin 13.7 g/dl (12.0-16.0); Imm Gran Abs Auto 0.07 X10*3/uL (0.00-0.03); Imm Gran Pct Auto 0.5 % (0.0-0.4); Lymphocytes Absolute Auto 2.3 X10*3/uL (1.2-4.9); Mean Corpuscular HGB Conc 32.6 g/dl (31.0-35.0); Mean Corpuscular Hemoglobin 28.0 pg (27.0-33.0); Mean Corpuscular Volume 85.9 fL (80.0-98.0); NRBC Abs Auto 0.000 X10*3/uL (0.0-0.012); NRBC Pct Auto 0.0 /100WBC (0.0-0.2); Platelet Count 355 X10*3/uL (160-400); Red Blood Count 4.89 X10*6/uL (4.20-5.50); White Blood Count 15.1 X10*3/uL (4.8-10.8)
[2024-12-28 18:52] LABS: Alanine Aminotransferase 18 U/L (0-31); Albumin Level 4.3 g/dL (3.5-5.0); Alkaline Phosphatase 65 U/L (39-117); Anion Gap 14 (12-20); Aspartate Amino Transferase 29 U/L (5-31); Blood Urea Nitrogen 12 mg/dL (9-16); Calcium 9.7 mg/dL (8.4-10.2); Carbon Dioxide 23 mmol/L (22-29); Chloride 105 mmol/L (96-108); Cholesterol 185 mg/dL (<200); Estimated Glomerular Filt Rate > 60; HDL Cholesterol 44 mg/dL (>40); Potassium 3.7 mmol/L (3.3-5.1); Sodium 138 mmol/L (135-145); Total Protein 7.5 g/dL (6.5-8.0); Triglycerides 145 mg/dL (<150)
[2024-12-28 19:09] LABS: Thyroid Stimulating Hormone 2.72 uIU/mL (0.32-4.0)
[2024-12-29 08:24] LABS: Syphilis Screen Nonreactive (Nonreactive)
[2024-12-29 09:33] LABS: Bacterial Vaginosis PCR POSITIVE (Negative); Candida Group PCR NOT DETECTED (Not Detect); Candida glab krusei PCR NOT DETECTED (Not Detect); Trichomonas vaginalis PCR NOT DETECTED (Not Detect)
[2024-12-29 10:05] LABS: CT PCR NOT DETECTED (Not Detect.); NG PCR NOT DETECTED (Not Detect.)
[2024-12-29 13:17] LABS: HIV Num 1 0.05 S/CO (0.00-0.99)
== END 2024-12-28 15:24 | disposition home or self-care (01) ==
LOC: HO.CHCLDS 15:23
PROVIDERS: PCP Internal Medicine; Visit Provider Internal Medicine
DX: Z00.00 Encounter for general adult medical examination without abnormal findings (principal); Z11.3 Encounter for screening for infections with a predominantly sexual mode of transmission; Z20.2 Contact with and (suspected) exposure to infections with a predominantly sexual mode of transmission; Z11.4 Encounter for screening for human immunodeficiency virus [HIV]; Z13.29 Encounter for screening for other suspected endocrine disorder; Z13.1 Encounter for screening for diabetes mellitus; Z13.6 Encounter for screening for cardiovascular disorders; N89.8 Other specified noninflammatory disorders of vagina; N89.5 Stricture and atresia of vagina
CPT/HCPCS: 36415; 80053; 80061; 81515; 83036; 83721; 84443; 85025; 86695; 86696; 86780; 87389; 87491; 87591

== ENCOUNTER 2025-02-10 11:31 | Outpatient (REF) | payer OTHER, SELFPAY ==
[2025-02-10 15:03] LABS: Bacterial Vaginosis PCR POSITIVE (Negative); Candida Group PCR NOT DETECTED (Not Detect); Candida glab krusei PCR NOT DETECTED (Not Detect); Trichomonas vaginalis PCR NOT DETECTED (Not Detect)
== END 2025-02-10 11:32 | disposition home or self-care (01) ==
LOC: HO.CHCLDS 11:31
PROVIDERS: Visit Provider Internal Medicine
DX: N89.8 Other specified noninflammatory disorders of vagina (principal)
CPT/HCPCS: 81515

== ENCOUNTER 2025-03-09 17:52 | Emergency (ER) | payer OTHER, SELFPAY ==
[2025-03-09 17:58] VITALS: BP 136/62; PULSE 86; RESP 18; TEMP 36.8; O2SAT 98; BMI 28.4
--- NOTE | 2025-03-09 17:59 | ED.PREGNANCY ---
HPI - General Chief complaint: General Medical Stated complaint: wants test Related Data Home Medications ?Medication ?Instructions ?Recorded ?Confirmed guanfacine 1 mg tablet 1 mg PO DAILY 12/29/20 12/29/20 hydroxyzine HCl 25 mg tablet 25 mg PO BID PRN Anxiety 12/29/20 12/29/20 lamotrigine 150 mg tablet 150 mg PO DAILY 12/29/20 12/29/20 multivitamin 1 tab PO DAILY 12/29/20 12/29/20 quetiapine 25 mg tablet 50 mg PO BEDTIME PRN Anxiety 12/29/20 12/29/20 quetiapine 50 mg tablet,extended 50 mg PO BEDTIME 12/29/20 12/29/20 release 24 hr Previous Rx's ?Medication ?Instructions ?Recorded albuterol sulfate 90 mcg/actuation 2 puff inhalation Q4-6H PRN 06/17/21 aerosol inhaler shortness of breath or wheezing #6.7 grams ibuprofen 600 mg tablet 600 mg PO Q8H PRN pain #30 tabs 01/17/22 oxycodone 5 mg tablet 5 mg PO Q8H PRN pain #8 tabs 01/17/22 Allergies Allergy/AdvReac Type Severity Reaction Status Date / Time No Known Allergies Allergy Verified 03/09/25 18:01 [facility] Social History Social History Alcohol intake: never Patient Tobacco Use Status: Never used Tobacco Advance Directives: No Advance Directives Information Provided: No Do you have a plan to hurt others: No Plan Physical Exam Vital Signs: Vital Signs: Last Vital Signs Temp 98.2 F 03/09/25 17:58 Pulse 86 03/09/25 17:58 Resp 18 03/09/25 17:58 BP 136/62 03/09/25 17:58 Pulse Ox 98 03/09/25 17:58 O2 Del Method Room Air 03/09/25 17:58 BMI result Body Mass Index 28.4 Course Course Course Narrative: This is a Rapid Medical Exam performed in triage by Blanca Guzmán PA-C. Full HPI, ROS and PE to be performed by primary ED provider. 29 yo F @ about 8wks gestation based on LMP presenting to the ED c/o +home test but requesting HCG to confirm - concerned that the test lines are becoming more faint. Admits to some vaginal mucus/discharge - denies bleeding or abdominal pain. Saw OB today & they scheduled her for a US in a week & patient is unhappy with this. LMP 01/06/25 PE: NAD, abdomen is soft and nontender Plan: Labs Medical Decision Making Lab Data Labs: Lab Results 03/09/25 Range/Units 19:31 Beta HCG, Quant 29419 mIU/mL Discharge Plan Discharge Clinical Impression: Patient Disposition: Left W/O Completing Treatment Prescriptions: No Action multivitamin [Multi-Vitamin] Tablet 1 tab PO DAILY quetiapine 25 mg Tablet 50 mg PO BEDTIME PRN (Reason: Anxiety) lamotrigine 150 mg Tablet 150 mg PO DAILY guanfacine [Tenex] 1 mg Tablet 1 mg PO DAILY hydroxyzine HCl 25 mg Tablet 25 mg PO BID PRN (Reason: Anxiety) quetiapine 50 mg Tablet Extended Release 24 Hr 50 mg PO BEDTIME albuterol sulfate 90 mcg/actuation HFA aerosol inhaler 2 puff inhalation Q4-6H PRN (Reason: shortness of breath or wheezing) Qty: 6.7 0RF ibuprofen 600 mg tablet 600 mg PO Q8H PRN (Reason: pain) Qty: 30 0RF oxycodone 5 mg tablet 5 mg PO Q8H PRN (Reason: pain) Qty: 8 0RF Rx Instructions: Partial Fill upon patient request. Discharge Date/Time: 03/10/25 00:00
--- OUTSIDE RECORDS SUMMARY | 2025-03-09 22:33 | XMS_ITS | Encounter Summary ---
Author Organization [employer] Address [address] [place] [address] Care Team Providers Care Die Cast Engineer Name Role Phone Marcelo Douglass MD Primary Care Prov ider Encounter Details Date Type Department Care Team ([facility] st Contact Info) Description 12/25/2023 Orders Only [facility] [address] [place] [address] ProviderRadha MD Social History Tobacco Use Types Packs/Day Years Used Date Smoking Tobacco: Every Day Cigarettes Smokeless Tobacco: Never Alcohol Use Standard Drinks/Week Comments Defer 0 (1 standard drink = 0.6 oz pur e alcohol) Depression Answer Date Recorded Patient Health Questionnaire-9 Score 0 09/17/2022 Housing Stability Answer Date Recorded What is your housing situation today? I have frank garzon 01/07/[address] you li ve. Do you have problems with any of the following? None of the above 01/07/2023 Food Insecurity Answer Date Recorded Within the past 12 months, y ou worried that your food would run out before you got money to buy more: Never True 01/07/2023 Within the past 12 months,th e food you bought just didn't last and you didn't have enough money to get more: Never True Transportation Answer Date Recorded In the past 12 months, has l ack of transportation kept you from medical appts, meetings, work or from getting things needed for daily living? No 01/07/2023 Utilities Answer Date Recorded In the past 12 months, has t he electric, gas, oil or water company threatened to shut off services in your home? No 01/07/2023 Depression Answer Date Recorded Patient Health Questionnaire-2 Score 0 09/17/2022 Comments No Sex and Gender Information Value Date Recorded Sex Assigned at Female 01/08/2022 10:31 AM EDT Legal Sex Female 10:31 AM EDT Gender Identity Female 01/08/2022 10:31 AM EDT Sexual Orientation Straight 01/08/2022 10 :31 AM EDT documented as of this encounter Plan of Treatment Upcoming Encounters Date Type Department Care Team (Late st Contact Info) Description 03/18/2025 8:45 AM EST Office Visit [facility] [address] [place] [address] Elsie Abreu documented as of this encounter Procedures Procedure Name Priority Date/Time Associated Diagnosis Comments BACTERIAL VAGINOSIS PANEL Routine 01/27/2024 10:57 AM EST HM PAP/HPV Routine 08/29/2022 10:51 AM EDT documented in this encounter Results * Bacterial Vaginosis (01/27/2024 10:57 AM EST) TRICHOMONAS VAGINALIS DETECTION BY PCR NOT DETECTED Not Detect [facility] BACTERIAL VAGINOSIS DETECTION BY PCR NEGATIVE Negative [facility] Comment:The BV organism targ ets of the Xpert Xpress MVP test can becommensal in women; Xpert Xpress MVP positive results forbacterial vaginosis should be considered in conjunction withother clinical and patient information to determine thedisease status. Organisms that are not detected by the XpertXpress MVP test have also been reported to be associatedwith BV and aerobic vaginitis.The Xpert Xpress MVP test performance has not been evaluatedin patients under the age of 14. DASHA GROUP DETECTION BY PCR NOT DETECTED Not Detect [facility] Dasha glab krusei PCR NOT DETECTED Not Detect [facility] 01/27/2024 10:5 7 AM EST 01/27/2024 5:58 PM EST us Jeannette Fuentes MD LAB MICROBIOLOGY - GENER AL ORDERABLES Final Result [facility] [address] [place] [address] [phone] * HM PAP/HPV (08/29/2022 10:51 AM EDT) us Historical Provider HEALTH MAINTENANCE Final Result documented in this encounter Visit Diagnoses Not on filedocumented in this encounter Additional Health Concerns Assessment Noted Time PHQ-9 Depression Total Score: 0 09/18/19 23 10:03 AM EDT documented as of this encounter Care Teams Die Cast Engineer Relationship Specialty Start Date End Date AlbrightMarcelo Zacarias MD [address] [place] [id number] PCP - General Internal Medicine 04/23/19 documented as of this encounter
--- OUTSIDE RECORDS SUMMARY | 2025-03-09 22:33 | XMS_ITS | Clinical Summary ---
Author Organization [employer] Address [address] [place] [address] Care Team Providers Care Delivery Lead Name Role Phone Marcelo Douglass MD Primary Care Prov ider Allergies No known active allergies Medications * This document contains information received from the source organization and may not represent a complete record from that organization. acetaminophen (Tylenol) 500 MG tablet Take 1 tablet (500 mg) by mouth every 6 (six) hours if needed for mild pain for up to 20 doses. 20 tablet 08/01/19 24 Active ibuprofen 600 MG tablet Take 1 tablet (600 mg) by mouth every 6 (six) hours if needed for mild pain for up to 20 doses. 20 tablet 01/27/20 24 Active QUEtiapine (SEROquel) 100 MG tablet Take 100 mg by mouth at bedtime. Active topiramate (Topamax) 25 MG tabletIndicatio ns:Chronic tension-type headache, intractable Take 1 tablet (25 mg) by mouth Once per day. 30 tablet 3 12/29/19 25 026 Active multivitamin () 27-0.8 MG tablet Take 1 tablet by mouth Once per day. 90 tablet 3 5 11:51 AM EST 02/11/20 25 026 Active melatonin 5 MG tablet Take 1 tablet (5 mg) by mouth if needed at bedtime (insomnia). 30 tablet 1 5 11:51 AM EST 02/11/20 25 Active multivitamin () 27-0.8 MG tablet Take 1 tablet by mouth Once per day. 30 tablet 11 01/27/20 24 025 Discontinued(Re order (will not trigger notification to Pharmacy)) multivitamin () 27-0.8 MG tablet Take 1 tablet by mouth Once per day. 90 tablet 3 02/11/20 25 025 Discontinued(Re order (will not trigger notification to Pharmacy)) Active Problems Problem Noted Date Diagnosed Date Pelvic pain 01/27/2024 DUB (dysfunctional uterine bleeding) 01/27/2024 Assessment & Plan (01/27/2024 4:51 PM EST): Urine hcg is NEG today, unclear if patient def had a miscarriage, I explained that she most likely did but at this time she seems to be hemodynamically stable and vag bleeding and pain seem to be easing up. I rx ibuprofen prn + rest at home, I told her to take at least 2-3d off, ideally 1w until bleeding and pain stops completely. She said she didn't need a letter for school, she'll return for one if she doesn't feel better by this Saturday. Order labs to ro vaginosis, no evidence of UTI. We'll fu results. Fu w PCP in 3-4w re DUB Impacted third molar tooth 08/01/2023 Cervical cancer screening 09/17/2022 Assessment & Plan (09/17/2022 10:34 AM EDT): Patient refers got her pap smear done at [facility] on August 29, she will bring the results, refers everything was normal Bilateral impacted cerumen 09/17/2022 Assessment & Plan (09/17/2022 12:54 PM EDT): Told to avoid q tips, will perform ear lavage today Physical exam 09/17/2022 Assessment & Plan (09/17/2022 12:56 PM EDT): Physical examination was unremarkable, pap smear done on August, patient will bring results Estimated Date of Delivery Comme nts Yes 10/16/2025 Encounters Date Type Department Care Team Description 03/09/2025 Orders Only GENERIC EXTERNAL DATA DEPARTMENT Provider, Generic External Data 03/07/2025 Refill [facility] [address] [place] [address] Marcelo Douglass MD 02/26/2025 Telephone [facility] [address] [place] [address] Elsie Abreu dental appt/ 02/22/2025 2:45 PM EST Telemedicine [facility] [address] [place], [place] [phone] Coretta Curran RN Pelvic pain 02/22/2025 Travel 02/15/2025 Orders Only [facility] [address] [place] [address] Marcelo Douglass MD 02/11/2025 Telephone [facility] [address] [place] [address] Marcelo Douglass MD Nurse Triage 02/11/2025 Telephone [facility] [address] [place] [address] Marcelo Douglass MD Nurse Triage 02/10/2025 9:30 AM EST Telemedicine [facility] [address] [place] [address] Marcelo Douglass MD Less than 8 weeks gestation of (Primary Dx); Vaginal discharge 02/10/2025 Telephone [facility] [address] [place] [address] Marcelo Douglass MD Medication Question 02/09/2025 Telephone [facility] [address] [place] [address] Marcelo Douglass MD no show 02/09/2025 Travel 02/08/2025 Telephone [facility] [address] [place] [address] Marcelo Douglass MD Call Back Request 01/07/2025 Telephone [facility] [address] [place] [address] Kana Vance DMD OS appt 12/31/2024 Telephone [facility] [address] [place] [address] Marcelo Douglass MD 12/29/2024 Telephone [facility] [address] [place] [address] Marcelo Douglass MD 12/29/2024 Telephone [facility] [address] [place] [address] Marcelo Douglass MD Results 12/29/2024 Orders Only [facility] [address] [place] [address] Marcelo Douglass MD 12/28/2024 1:45 PM EDT Office Visit [facility] [address] [place] [address] Marcelo Douglass MD Screening examination for STI (Primary Dx); Encounter for immunization; Encounter for vaccination; Vaginal discharge; Routine general medical examination at a health care facility; Chronic tension-type headache, intractable; Desire for ; Dietary counseling; Exercise counseling; Overweight 12/28/2024 Orders Only [address] [address] Phil Vergara NP 12/28/2024 Travel 12/24/2024 Telephone [facility] [address] [place], [place] [phone] Marcelo Douglass MD chart prep 12/21/2024 Travel from Last 3 Months Immunizations Immunization Administration Dates Next Due Influenza, seasonal, injectable, preservative fr ee 12/28/2024 Pfizer Covid-19 Vaccine 12+ 12/28/2024 Social History Tobacco Use Types Packs/Day Years Used Date Smoking Tobacco: Some Days Cigarettes Smokeless Tobacco: Never Tobacco Cessation:Ready to Q uit: Not Asked; Counseling Given: Not Answered Alcohol Use Standard Drinks/Week Comments Defer 0 (1 standard drink = 0.6 oz pur e alcohol) Depression Answer Date Recorded Patient Health Questionnaire-9 Score 1 12/28/2024 Patient Health Questionnaire-9 Score 1 12/28/2024 Last PHQ-9: Questionnaire Data Not on file 1 Housing Stability Answer Date Recorded What is your housing situation today? I have frank garzon 12/28/[address] you li ve. Do you have problems with any of the following? None of the above 12/28/2024 Food Insecurity Answer Date Recorded Within the past 12 months, y ou worried that your food would run out before you got money to buy more: Never True 12/28/2024 Within the past 12 months,th e food you bought just didn't last and you didn't have enough money to get more: Never True Transportation Answer Date Recorded In the past 12 months, has l ack of transportation kept you from medical appts, meetings, work or from getting things needed for daily living? No 12/28/2024 Utilities Answer Date Recorded In the past 12 months, has t he electric, gas, oil or water company threatened to shut off services in your home? No 12/28/2024 Depression Answer Date Recorded Patient Health Questionnaire-2 Score 1 12/28/2024 Internet Access Answer Date Recorded Internet Access Q1 Yes 12/28/2024 Internet Access Q2 Not on file 12/28/2024 Estimated Date of Delivery Comme nts Yes 10/16/2025 Sex and Gender Information Value Date Recorded Sex Assigned at Female 01/08/2022 10:31 AM EDT Legal Sex Female 10:31 AM EDT Gender Identity Female 01/08/2022 10:31 AM EDT Sexual Orientation Straight 01/08/2022 10 :31 AM EDT Last Filed Vital Signs Vital Sign Reading Time Taken Comments Blood Pressure 102/64 12/28/2024 1:52 PM EDT Pulse 88 12/28/2024 1:52 PM EDT Temperature 37.1 C (98.7 F) 12/28/2024 1:52 PM EDT Respiratory Rate 20 12/28/2024 1:52 PM EDT Oxygen Saturation - - Inhaled Oxygen Concentration - - Weight 80.7 kg (178 lb) 12/28/2024 1:52 PM EDT Height 167.6 cm (5' 6 ) 12/28/2024 1:52 PM EDT Body Mass Index 28.73 12/28/2024 1:52 PM EDT Plan of Treatment Upcoming Encounters Date Type Department Care Team (Late st Contact Info) Description 03/18/2025 8:45 AM EST Office Visit [facility] [address] [place] [address] Elsie Abreu Health Maintenance Due Date Last Done Comments IPV Vaccines (3 of 3 - 4-dose series) 2001 03/01/1998, 1997 Family Planning (PISQ) 2012 Hepatitis C Screening 09/24/2015 Pneumococcal Vaccine: Pediatrics (0 to 5 Years) and At-Risk Patients (6 to 49) Years (1 of 2 - PCV) 2016 Dental Oral Exam 03/09/2023 09/06/2022, 08/11/2020 HPV/Cotest 08/30/2023 Pap Smear 08/30/2023 08/29/2022 Dental Prophylaxis 08/14/2024 02/13/2024, 08/11/2020 Dental X-Ray: Bitewings 02/13/2025 02/13/2024, 09/06 Tobacco Screening 04/28/2025 04/28/2024 Disability Screening 12/21/2025 12/21/2024 Alcohol/Substance Use Screening 12/28/2025 12/28/2024 Depression Screening 12/28/2025 12/28/2024, 12/29/19 25 SDOH Screening 12/28/2025 12/28/2024 Dental X-Ray: Full Mouth 08/01/2026 024, 09/06/2022, 08/11/2020 DTaP/Tdap/Td Vaccines (7 - Td or Tdap) 10/16/2027 10/15/2017, 12/10/2016, 05/24/2016, Additional history exists Lipid Panel 12/28/2029 12/28/2024, 12/28/2024 Zoster Vaccines (1 of 2) 09/24/2047 Hepatitis B Vaccines Completed 05/02/1998, 1997, 1997 HIB Vaccines Completed 12/27/1998, 04/12, 03/01/1998, Additional history exists Meningococcal Vaccine Completed 05/24/2016 HPV Vaccines Completed 05/10/2020, 07/10, 05/24/2016 Hepatitis A Vaccines Completed 05/10/2020, 05/25/19 17 COVID-19 Vaccine Completed 12/28/2024, , 08/09/2020 HIV Screening Completed 12/28/2024 Influenza Vaccine Completed 12/28/2024, , 04/28/2019, Additional history exists Meningococcal B Vaccine Aged Out No l onger eligible based on patient's age to complete this topic RSV Patients and Patients Aged 60 years or older (No Doses Required) Completed RSV under 20 months Aged Out No longe r eligible based on patient's age to complete this topic Rotavirus Vaccines Aged Out No longer eligible based on patient's age to complete this topic Procedures Procedure Name Priority Date/Time Associated Diagnosis Comments HCG, TOTAL, QN Routine 03/09/2025 7:31 PM EST BACTERIAL VAGINOSIS PANEL Routine 02/10/2025 11:31 AM EST Vaginal discharge HSV 1/2 IGG,TYPE SPECIFIC AB Routine 12/28/2024 3:26 PM EDT COMPREHENSIVE METABOLIC PANEL Routine 12/28/2024 3:26 PM EDT Routine general medical examination at a health care facility DIRECT LDL Routine 12/28/2024 3:26 PM EDT Routine general medical examination at a health care facility HEMOGLOBIN A1C Routine 12/28/2024 3:26 PM EDT Routine general medical examination at a [facility] TSH Routine 12/28/2024 3:26 PM EDT Routine general medical examination at a health care facility LIPID PANEL, STANDARD Routine 12/28/2024 3:26 PM EDT Routine general medical examination at a health care facility CBC WITH AUTO DIFFERENTIAL Routine 12/28/2024 3:26 PM EDT Routine general medical examination at a health care facility SYPHILIS SCREEN Routine 12/28/2024 3:26 PM EDT Screening examination for STI HIV 1/2 ANTIGEN/ANTIBODY, FOURTH GENERATION W/RFL Routine 12/28/2024 3:26 PM EDT Screening examination for STI CHLAMYDIA/N. GONORRHOEAE RNA, TMA, UROGENITAL Routine 12/28/2024 2:58 PM EDT Vaginal discharge BACTERIAL VAGINOSIS PANEL Routine 12/28/2024 2:58 PM EDT Vaginal discharge Full PROPHYLAXIS - ADULT Routine 02/13/2024 3:00 PM EST BITEWINGS - 4 RADIOGRAPHIC IMAGES Routine 02/13/2024 3:00 PM EST PANORAMIC RADIOGRAPHIC IMAGE Routine 08/01/2023 11:30 AM EDT COMPREHENSIVE ORAL EVALUATION - NEW OR ESTABLISHED PATIENT Routine 09/06/2022 10:30 AM EDT HM PAP/HPV Routine 08/29/2022 10:51 AM EDT from Last 3 Months or Most Recently Relevant to Health Maintenance Results * hCG, Total, Quantitative (03/09/2025 7:31 PM EST) HCG Quantitative 85,120 mIU/mL [facility] Comment:Weeks post LMP Appro ximate hCG(Last Menstrual Period) Range (mIU/ml)3 - 4 weeks 9 - 1304 - 5 weeks 75 - 2,6005 - 6 weeks 850 - 20,8006 - 7 weeks 4000 - 100,2007 - 12 weeks 11,500 - 289,31743 - 16 weeks 18,300 - 137,48630 - 29 weeks (2nd trimester) 1,400 - 53,63764 - 41 weeks (3rd trimester) 940 - 60,000The Khan B- hCG assay is used for the early detection ofpregnancy; it cannot be used to diagnose any conditionunrelated to . If a B-hCG level is not supportedby the clinical evidence, results should be confirmed by analternative method (qualitative urine hCG, for example). 03/09/2025 7:31 PM EST 03/09/2025 7:34 PM EST us Generic External Data Provider LAB BLOOD ORDERAB LES Final Result [facility] [address] [place] [phone] * (ABNORMAL) Bacterial Vaginosis Panel (02/10/2025 11:31 AM EST) Only the most recent of2 resultswithin the time period is included. TRICHOMONAS VAGINALIS DETECTION BY PCR NOT DETECTED Not Detect [facility] BACTERIAL VAGINOSIS DETECTION BY PCR POSITIVE(A) Negative [facility] Comment:The BV organism targ ets [...] DETECTION BY PCR NOT DETECTED Not Detect [facility] Dasha glab krusei PCR NOT DETECTED Not Detect [facility] Swab Vaginal structure / Unknown 02/10/2025 11:31 AM EST 02/10/2025 2:01 PM EST us Marcelo Almazan MD LAB MICROBIOLOGY - GENERAL ORDERABLES Final Result Performing Organization Address City/[facility]/ZIP Co de Phone Number [facility] [address] [place] [phone] * Syphilis Screen (12/28/2024 3:26 PM EDT) Pathologist [facility] Syphilis Screen Nonreactive Nonreactive [facility] Blood Venous blood specimen / Unknown 12/28/2024 3:26 PM EDT 12/28/2024 6:20 PM EDT us Phil Vergara NP LAB BLOOD ORDERABLES Final Re sult Performing Organization Address [facility]/ZIP Co de Phone Number [facility] [address] [place] [phone] * (ABNORMAL) CBC auto differential (12/28/2024 3:26 PM EDT) Pathologist [facility] White Blood Count 15.1(H) 4.8 - 10.8 X10*3/uL [facility] Red Blood Count 4.89 4.20 - 5.50 X10*6/uL [facility] Hemoglobin 13.7 12.0 - 16.0 g/dl [facility] Hematocrit 42.0 37.0 - 47.0 % [facility] Mean Corpuscular Volume 85.9 80.0 - 98.0 fL [facility] Mean Corpuscular Hemoglobin 28.0 27.0 - 33.0 pg [facility] Mean Corpuscular HGB Conc 32.6 31.0 - 35.0 g/dl [facility] Red Cell Distribution Width 13.0 11.0 - 16.0 % [facility] Platelet Count 355 160 - 400 X10*3/uL [facility] Mean Platelet Volume 9.8 9.4 - 12.3 fL [facility] Neutrophils Percent Auto 76.0(H) 45 - 73 % [facility] Imm Gran Pct Auto 0.5(H) 0.0 - 0.4 % [facility] Lymphocytes Percent Auto 15.5(L) 20 - 40 % [facility] Monocytes Percent Auto 5.6 2 - 11 % [facility] Eosinophils Percent Auto 2.1 0 - 4 % [facility] Basophils Percent Auto 0.3 0 - 2 % [facility] NRBC Pct Auto 0.0 0.0 - 0.2 /100WBC [facility] Neutrophils Absolute Auto 11.5(H) 2.0 - 8.3 x10*3/uL [facility] Imm Gran Abs Auto 0.07(H) 0.00 - 0.03 X10*3/uL [facility] Lymphocytes Absolute Auto 2.3 1.2 - 4.9 X10*3/uL [facility] Monocytes Absolute Auto 0.9 0.1 - 1.2 X10*3/uL [facility] Eosinophils Absolute Auto 0.3 0.0 - 0.4 X10*3/uL [facility] Basophils Absolute Auto 0.1 0.0 - 0.2 X10*3/uL [facility] NRBC Abs Auto 0.000 0.0 - 0.012 X10*3/uL [facility] Blood Venous blood specimen / Unknown 12/28/2024 3:26 PM EDT 12/28/2024 6:20 PM EDT Phil Vergara NP LAB BLOOD ORDERABLES Final Re sult [facility] [address] [place] [phone] [phone] * (ABNORMAL) Herpes Simplex Virus 1 and 2 (IgG), Type-Specific Antibodies (12/28/2024 3:26 PM EDT) Herpes Simplex Type 1 IgG >58.00(A) index [facility] Herpes Simplex Type 2 IgG <0.90 index [facility] Comment: Index Interpretation ----- <0.90 Negative 0.90-1.09 Equivocal >1.09 PositiveThis assay utilizes recombinant type-specific antigensto differentiate HSV-1 from HSV-2 infections. Apositive result cannot distinguish between recent andpast infection. If results are negative or equivocal,consider repeat testing in 4-12 weeks with a newspecimen. The performance characteristics of the assayhave not been established for pediatric populations,immunocompromised patients, or screening.Positive HSV-2 IgG samples with index values between1.10-6.00 will reflex to the HSV-2 IgG inhibition test.See Note 1Note 1For additional information, please refer [email or web address].[employer]/faq/FAQ54(This link is being provided for informational/educational purposes only.)THIS TEST WAS PERFORMED AT:[facility] [facility] [place] [phone] HALLMAN MD 12/28/2024 3:26 PM EDT 12/28/2024 6:29 PM EDT Marylily Kimatu FRAME GATE MORTISER OPERATOR LAB BLOOD ORDERABLES Final Re sult Performing Organization Address [facility]/ZIP Co de Phone Number [facility] [address] [place] [phone] * HIV-1/2 Antigen and Antibodies, Fourth Generation, with Reflexes (12/28/2024 3:26 PM EDT) HIV AB/AG Nonreactive Nonreactive [facility] Comment:HIV-1 p24 Ag and/or HIV-1/HIV-2 Ab not detected.A test result that is nonreactive does not exclude thepossibility of exposure to or infection with HIV-1 and/orHIV-2. Nonreactive results in this assay for individualswith prior exposure to HIV-1 and/or HIV-2 may be due toantigen and antibody levels that are below the limit ofdetection of this assay.The [employer]* HIV Ag/Ab Combo assay result andsupplemental assay results should be interpreted inconjunction with the patient's clinical presentation,history and other laboratory results. If the results areinconsistent with clinical evidence, additional testing issuggested to confirm the result. Blood Venous blood specimen / Unknown 12/28/2024 3:26 PM EDT 12/28/2024 6:20 PM EDT Phil Vergara NP LAB BLOOD ORDERABLES Final Re sult Performing Organization Address [facility]/ZIP Co de Phone Number [facility] [address] [place] [phone] [phone] * TSH (12/28/2024 3:26 PM EDT) Thyroid Stimulating Hormone 2.72 0.32 - 4.0 uIU/mL [facility] Comment:Note: A sustained TS H level above 2.5 uIU/mL may warrant further investigation. TSH 3rd Generation ([facility]) Blood Venous blood specimen / Unknown 12/28/2024 3:26 PM EDT 12/28/2024 6:16 PM EDT Yolissue Vergara FRAME GATE MORTISER OPERATOR LAB BLOOD ORDERABLES Final Re sult Performing Organization Address City/[facility]/ZIP Co de Phone Number [facility] [address] [place] [address] [phone] * (ABNORMAL) Direct LDL (12/28/2024 3:26 PM EDT) LDL Direct 136(H) <100 mg/dL [facility] Comment:Greatly elevated Tri glycerides values (>1200 mg/dL)interfere with the dLDL assay.Desirable range <100 mg/dL for primary prevention;<70 mg/dL for patients with CHD or diabetic patientswith > or = 2 CHD risk factors.THIS TEST WAS PERFORMED AT:[facility] [place] [phone] HALLMAN MD Blood Venous blood specimen / Unknown 12/28/2024 3:26 PM EDT 12/28/2024 6:20 PM EDT Yolissue Vergara FRAME GATE MORTISER OPERATOR LAB BLOOD ORDERABLES Final Re sult Performing Organization Address City/[facility]/ZIP Co de Phone Number [facility] [address] [place] [phone] * Hemoglobin A1c (12/28/2024 3:26 PM EDT) Hemoglobin A1c 5.3 <6.0 % [facility] Comment:Hemoglobin A1C Refer ence Range Adults: 4.8 - 6.0 % Non diabetic: < 6.0 % Goal: < 7.0 %Additional Action Suggested: > 8.0 %Note: Hemoglobin A1c results are invalid for patients with abnormal amounts of HbF. Blood transfusions may impact the HbA1c concentration in the patient sample. Estimated Average Glucose 105 mg/dL [facility] Comment:eAG = Estimated ave rage glucose which is %A1C expressed asaverage glucose, using the formula of the Q5Q-PkildtzXbycojf Glucose study (ADAG), Diabetes Care, Vol.31,#8,2007 Blood Venous blood specimen / Unknown 12/28/2024 3:26 PM EDT 12/28/2024 6:20 PM EDT Phil Vergara NP LAB BLOOD ORDERABLES Final Re sult Performing Organization Address [facility] de Phone Number [facility] [address] [place] [address] [phone] * (ABNORMAL) Lipid Panel, Standard (12/28/2024 3:26 PM EDT) Triglycerides 145 <150 mg/dL [facility] Comment:Desirable Triglyceri de: less than 150 mg/dLBorderline High Triglyceride 150-199 mg/dLHigh Triglyceride: 200-499 mg/dLVery High Triglyceride: greater than or equal to 5OO mg/dL Cholesterol 185 <200 mg/dL [facility] Comment:Desirable Cholestero l: less than 200 mg/dLBorderline High Cholesterol: 200-239 mg/dLHigh Cholesterol: greater than 239 mg/dL LDL Cholesterol Calculated 112(H) <100 mg/dL [facility] Comment:Desirable LDL: less than 100 mg/dLNear Optimal/Above Optimal LDL: 110- 129 mg/dLBorderline High LDL: 130-159 mg/dLHigh LDL: 160-189 mg/dLVery High LDL: greater than or equal to 190 mg/dL HDL Cholesterol 44 >40 mg/dL [facility] Comment:Desirable HDL: great er than 40 mg/dL Note: This HDL assay may give artificially low results in patients with liver disease. Blood Venous blood specimen / Unknown 12/28/2024 3:26 PM EDT 12/28/2024 6:16 PM EDT us Phil Vergara NP LAB BLOOD ORDERABLES Final Re sult Performing Organization Address [facility] Co de Phone Number [facility] [address] [place] [phone] * Comprehensive Metabolic Panel (12/28/2024 3:26 PM EDT) Sodium 138 135 - 145 mmol/L [facility] Potassium 3.7 3.3 - 5.1 mmol/L [facility] Chloride 105 96 - 108 mmol/L [facility] Carbon Dioxide 23 22 - 29 mmol/L [facility] Anion Gap 14 12 - 20 [facility] Urea Nitrogen (BUN) 12 9 - 16 mg/dL [facility] Creatinine, Serum 0.66 0.5 - 1.4 mg/dL [facility] Estimated Glomerular Filt Rate >60 [facility] Comment:Chronic Kidney Disea se: Estimated GFR < 60 mL/min/1.20c3Fspvxw Kidney Disease: Estimated GFR < 15 mL/min/1.73m2 Glucose 84 60 - 115 mg/dL [facility] Calcium 9.7 8.4 - 10.2 mg/dL [facility] Bilirubin, Total 1.0 0.0 - 1.0 mg/dL [facility] Aspartate Amino Transferase 29 5 - 31 U/L [facility] Alanine Aminotransferase 18 0 - 31 U/L [facility] Total Protein 7.5 6.5 - 8.0 g/dL [facility] Albumin Level 4.3 3.5 - 5.0 g/dL [facility] Alkaline Phosphatase 65 39 - 117 U/L [facility] Blood Venous blood specimen / Unknown 12/28/2024 3:26 PM EDT 12/28/2024 6:16 PM EDT us Phil Vergara FRAME GATE MORTISER OPERATOR LAB BLOOD ORDERABLES Final Re sult [facility] [address] [place] [address] [phone] * Chlamydia/N. Gonorrhoeae RNA, TMA, Vaginal (12/28/2024 2:58 PM EDT) CT PCR NOT DETECTED Not Detect. [facility] Comment:A not detected test result does not exclude the possibilityof infection because test results can be affected byimproper specimen collection, concurrent antibiotic therapy,or the number of organisms in the specimen which may bebelow the sensitivity of the test. As with many diagnostictests, results from the Xpert CT/NG assay should beinterpreted in conjunction with other laboratory andclinical data available to the clinician.Xpert CT/NG performance has not been evaluated in patientsless than 14 years of age. The assay should not be used forthe evaluationof suspected sexual abuse or for other medico-legalindications. Additional testing is recommended in anycircumstance when false positive or false negative resultscould lead to adverse medical, social or psychologicalconsequences. NG PCR NOT DETECTED Not Detect. [facility] Comment:A not detected test result does not exclude the possibilityof infection because test results can be affected byimproper specimen collection, concurrent antibiotic therapy,or the number of organisms in the specimen which may bebelow the sensitivity of the test. As with many diagnostictests, results from the Xpert CT/NG assay should beinterpreted in conjunction with other laboratory andclinical data available to the clinician.Xpert CT/NG performance has not been evaluated in patientsless than 14 years of age. The assay should not be used forthe evaluationof suspected sexual abuse or for other medico-legalindications. Additional testing is recommended in anycircumstance when false positive or false negative resultscould lead to adverse medical, social or psychologicalconsequences. Swab (Vaginal Swab) 12/28/2024 2:58 PM EDT 12/28/2024 6:17 PM EDT Marcelo Almazan MD LAB MICROBIOLOGY - GENERAL ORDERABLES Final Result [facility] [address] [place] [phone] * HM PAP/HPV (08/29/2022 10:51 AM EDT) Radha Barreot MD HEALTH MAINTENANCE Final Result from Last 3 Months or Most Recently Relevant to Health Maintenance Insurance [employer] < 65 DENTAL - [facility] Care Teams Delivery Lead Relationship Specialty Start Date End Date Marcelo Douglass MD [address] [place] [phone] PCP - General Internal Medicine 04/23/19
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
--- OUTSIDE RECORDS SUMMARY | 2025-03-09 22:33 | XMS_ITS | Encounter Summary ---
Author Organization [employer] Address [address] [facility] 7 [place] [address] Care Team Providers Care Sheet Rock Installation Helper Name Role Phone Marcelo Douglass MD Primary Care Prov ider Reason for Visit * Reason Onset Date Comments Med Refill 03/08/2025 Encounter Details Date Type Department Care Team ([facility] Contact Info) Description 03/07/2025 Refill [facility] [address] [place], [place] [phone] Marcelo Douglass MD [address] [place] [address] Social History Tobacco Use Types Packs/Day Years Used Date Smoking Tobacco: Some Days Cigarettes Smokeless Tobacco: Never Alcohol Use Standard Drinks/Week Comments Defer 0 (1 standard drink = 0.6 oz pur e alcohol) Depression Answer Date Recorded Patient Health Questionnaire-9 Score 1 12/28/2024 Patient Health Questionnaire-9 Score 1 12/28/2024 Last PHQ-9: Questionnaire Data Not on file 1 Housing Stability Answer Date Recorded What is your housing situation today? I have rfank garzon 12/28/[address] you [...] Description 03/18/2025 8:45 AM EST Office Visit [facility] [address] [place] [address] Elsie Abreu documented as of this encounter Visit Diagnoses Not on filedocumented in this encounter Additional Health Concerns Assessment Noted Time PHQ-9 Depression Total Score: 1 12/29/19 25 3:10 PM EDT documented as of this encounter Care Teams Sheet Rock Installation Helper Relationship Specialty Start Date End Date Marcelo Douglass MD [address] [place] [address] PCP - General Internal Medicine 04/23/19 documented as of this encounter
--- OUTSIDE RECORDS SUMMARY | 2025-03-09 22:33 | XMS_ITS | Encounter Summary ---
Author Organization [employer] [facility] Address [address] [facility] 7[address] [place] [address] Care Team Providers Care Aircraft Assembler Name Role Phone Marcelo Douglass MD Primary Care Prov ider Encounter Details Date Type Department Care Team (Latest Contact Info) Description 08/11/2020 Abstract [facility] CONVERSIONS Dental, Provider, DDS Social History Tobacco Use Types Packs/Day Years Used Date Smoking Tobacco: Never Assessed Comments Unknown Sex and Gender Information Value Date Recorded Sex Assigned at Female 01/08/2022 10:31 AM EDT Legal Sex Female 10:31 AM EDT Gender Identity Female 01/08/2022 10:31 AM EDT Sexual Orientation Straight 01/08/2022 10 :31 AM EDT documented as of this encounter Plan of Treatment Upcoming Encounters Date Type Department Care Team ( st Contact Info) Description 03/18/2025 8:45 AM EST Office Visit [facility] [address] [place] [address] Elise Abreu documented as of this encounter Visit Diagnoses Not on filedocumented in this encounter Care Teams Aircraft Assembler Relationship Specialty Start Date End Date Marcelo Douglass MD [address] [place] [address] PCP - General Internal Medicine 04/23/19 documented as of this encounter
--- OUTSIDE RECORDS SUMMARY | 2025-03-09 22:33 | XMS_ITS | Encounter Summary ---
Author Organization [employer] Address [address] [place] [address] Care Team Providers Care Sales Market Leader Name Role Phone Marcelo Douglass MD Primary Care Prov ider Encounter Details Date Type Department Care Team ([facility] st Contact Info) Description 02/15/2025 Orders Only [facility] CHC MED & PEDS [address] [place], [place] [phone] Marcelo Douglass MD [address] [place] [address] Social History Tobacco Use Types Packs/Day Years [...] Internet Access Q2 Not on file 12/28/2024 Comments No Sex and Gender Information Value Date Recorded Sex Assigned at Female 01/08/2022 10:31 AM EDT Legal Sex Female 10:31 AM EDT Gender Identity Female 01/08/2022 10:31 AM EDT Sexual Orientation Straight 01/08/2022 10 :31 AM EDT documented as of this encounter Plan of Treatment Upcoming Encounters Date Type Department Care Team ([facility] st Contact Info) Description 03/18/2025 8:45 AM EST Office Visit [facility] ADULT DENTAL [address] [place] [address] Elsie Abreu documented as of this encounter Visit Diagnoses Not on filedocumented in this encounter Additional Health Concerns Assessment Noted Time PHQ-9 Depression Total Score: 1 12/29/19 25 3:10 PM EDT documented as of this encounter Care Teams Sales Market Leader Relationship Specialty Start Date End Date Marcelo Douglass MD [address] [place] [address] PCP - General Internal Medicine 04/23/19 documented as of this encounter
--- OUTSIDE RECORDS SUMMARY | 2025-03-09 22:33 | XMS_ITS | Encounter Summary ---
Author Organization [employer] Address [address] [facility] 7 [place] [address] Care Team Providers Care Marketing Reporting Analyst Name Role Phone Marcelo Douglass MD Primary Care Prov ider Reason for Visit * Reason Onset Date Comments Medication Question 02/10/2025 Encounter Details Date Type Department Care Team ([facility] Contact Info) Description 02/10/2025 Telephone [facility] CHC MED & PEDS [address] [place], [place] [phone] Marcelo Douglass MD [address] [place] [address] Medication Question Social History Tobacco Use Types Packs/Day Years [...] AM EDT documented as of this encounter Miscellaneous Notes * Telephone Encounter - Raciel Pierce - 02/10/2025 3:08 PM EST Tc from pt reporting that she received the results and would like to know what medication she can take due to her being . Contact pt at [phone] documented in this encounter Plan of Treatment Upcoming Encounters Date Type Department Care Team (Late st Contact Info) Description 03/18/2025 8:45 AM EST Office Visit [facility] ADULT DENTAL [address] [place] [address] Elsie Abreu documented as of this encounter Visit Diagnoses Not on filedocumented in this encounter Additional Health Concerns Assessment Noted Time PHQ-9 Depression Total Score: 1 12/29/19 25 3:10 PM EDT documented as of this encounter Care Teams Marketing Reporting Analyst Relationship Specialty Start Date End Date Marcelo Douglass MD [address] [place] [address] PCP - General Internal Medicine 04/23/19 documented as of this encounter
--- OUTSIDE RECORDS SUMMARY | 2025-03-09 22:33 | XMS_ITS | Encounter Summary ---
Author Organization [employer] Address [address] [place] [address] Care Team Providers Care Protein Specialist Name Role Phone Marcelo Douglass MD Primary Care Prov ider Reason for Visit * Reason Onset Date Comments dental appt/ 02/26/2025 Encounter Details Date Type Department Care Team ([facility] st Contact Info) Description 02/26/2025 Telephone [facility] ADULT DENTAL [address] [place] [address] Elsie Abreu dental appt/ Social History Tobacco Use Types Packs/Day Years [...] encounter Miscellaneous Notes * Telephone Encounter - Criss Artis - 02/26/2025 2:04 PM EST Patient is 7 weeks as of today 02/26/2025. Patient advised clearance from OB must be sent to office prior to dental visit. Fax number provided to patient DR documented in this encounter Plan of Treatment Upcoming Encounters Date Type Department Care Team (Late st Contact Info) Description 03/18/2025 8:45 AM EST Office Visit [facility] ADULT DENTAL [address] [place] [address] Elsie Abreu documented as of this encounter Visit Diagnoses Not on filedocumented in this encounter Additional Health Concerns Assessment Noted Time PHQ-9 Depression Total Score: 1 12/29/19 25 3:10 PM EDT documented as of this encounter Care Teams Protein Specialist Relationship Specialty Start Date End Date Marcelo Douglass MD [address] [place] [address] PCP - General Internal Medicine 04/23/19 documented as of this encounter
--- OUTSIDE RECORDS SUMMARY | 2025-03-09 22:33 | XMS_ITS | Encounter Summary ---
Author Organization [employer] Address [address] [place] [address] Care Team Providers Care Service Delivery Director Name Role Phone Marcelo Douglass MD Primary Care Prov ider Encounter Details Date Type Department Care Team ([facility] Contact Info) Description 03/09/2025 Orders Only GENERIC EXTERNAL DATA DEPARTMENT Provider, Generic External Data Social History Tobacco Use Types Packs/Day Years [...] is your housing situation today? I have frankjessie garzon 12/28/[address] you [...] Description 03/18/2025 8:45 AM EST Office Visit [facility] ADULT DENTAL [address] [place] [address] Elsie Abreu documented as of this encounter Procedures Procedure Name Priority Date/Time Associated Diagnosis Comments HCG, TOTAL, QN Routine 03/09/2025 7:31 PM EST documented in this encounter Results * hCG, Total, Quantitative (03/09/2025 7:31 PM EST) HCG Quantitative 85,120 mIU/mL [facility] Comment:Weeks post LMP Appro ximate hCG(Last Menstrual Period) Range (mIU/ml)3 - 4 weeks 9 - 1304 - 5 weeks 75 - 2,6005 - 6 weeks 850 - 20,8006 - 7 weeks 4000 - 100,2007 - 12 weeks 11,500 - 289,67894 - 16 weeks 18,300 - 137,90744 - 29 weeks (2nd trimester) 1,400 - 53,73878 - 41 weeks (3rd trimester) 940 - [...] Provider LAB BLOOD ORDERAB LES Final Result [facility] [address] [place] [address] [phone] documented in this encounter Visit Diagnoses Not on filedocumented in this encounter Additional Health Concerns Assessment Noted Time PHQ-9 Depression Total Score: 1 12/29/19 25 3:10 PM EDT documented as of this encounter Care Teams Service Delivery Director Relationship Specialty Start Date End Date Marcelo Douglass MD [address] [place] [id number] PCP - General Internal Medicine 04/23/19 documented as of this encounter
--- OUTSIDE RECORDS SUMMARY | 2025-03-09 22:33 | XMS_ITS | Encounter Summary ---
Author Organization [employer] Address [address] [facility] 7 [place] [address] Care Team Providers Care Assisted Living Associate Name Role Phone Marcelo Douglass MD Primary Care Prov ider Reason for Visit * Reason Onset Date Comments Nurse Triage 02/11/2025 Encounter Details Date Type Department Care Team ([facility] st Contact Info) Description 02/11/2025 Telephone C [facility] MED [facility] PEDS [address] [place], [place] [phone] Marcelo Douglass MD [address] [place] [address] Nurse Triage Social History Tobacco Use Types Packs/Day Years [...] encounter Miscellaneous Notes * Telephone Encounter - Seema Rm RN - 02/11/2025 10:19 AM EST Triaged in separate encounter * Telephone Encounter - Tanja Cintron - 02/11/2025 9:17 AM EST Symptom: Nausea But No Vomiting Outcome: Schedule an urgent appointment (within 4 hours) or talk to a nurse or provider soon Reason: Can't drink anything Pt currently can not eat , keep anything down Contact pt at [phone] documented in this encounter Plan of Treatment Upcoming Encounters Date Type Department Care Team (Late st Contact Info) Description 03/18/2025 8:45 AM EST Office Visit [facility] ADULT DENTAL [address] [place] [address] Elsie Abreu documented as of this encounter Visit Diagnoses Not on filedocumented in this encounter Additional Health Concerns Assessment Noted Time PHQ-9 Depression Total Score: 1 12/29/19 25 3:10 PM EDT documented as of this encounter Care Teams Assisted Living Associate Relationship Specialty Start Date End Date Marcelo Douglass MD [address] [place] [phone] PCP - General Internal Medicine 04/23/19 documented as of this encounter
--- OUTSIDE RECORDS SUMMARY | 2025-03-09 22:33 | XMS_ITS | Encounter Summary ---
Author Organization [employer] Address [address] [facility] 7[address] [place] [address] Care Team Providers Care Satellite Communications Operator Name Role Phone Marcelo Douglass MD Primary Care Prov ider Reason for Visit * Reason Onset Date Comments Results 12/29/2024 Encounter Details Date Type Department Care Team ([facility] st Contact Info) Description 12/29/2024 Telephone [facility] MEDICINE [address] [place] [address] Marcelo Douglass MD [address] [place] [address] Results Social History Tobacco Use Types Packs/Day Years [...] Miscellaneous Notes * Telephone Encounter - Raciel Pelayo - 12/31/2024 2:23 PM EDT Tc from pt calling back regarding prior message. Contact pt at [phone] * Telephone Encounter - Nai Escalante - 12/29/2024 9:16 AM EDT TC from pt requesting call back regarding Results. Type of results: Blood test Date when done: 12/28 Facility: [facility] Contact pt at [phone] documented in this encounter Plan of Treatment Upcoming Encounters Date Type Department Care Team (Late st Contact Info) Description 03/18/2025 8:45 AM EST Office Visit [facility] ADULT DENTAL [address] [place] [address] Elsie Abreu documented as of this encounter Visit Diagnoses Not on filedocumented in this encounter Additional Health Concerns Assessment Noted Time PHQ-9 Depression Total Score: 1 12/29/19 25 3:10 PM EDT documented as of this encounter Care Teams Satellite Communications Operator Relationship Specialty Start Date End Date Marcelo Douglass MD [address] [place] [id number] PCP - General Internal Medicine 04/23/19 documented as of this encounter
--- OUTSIDE RECORDS SUMMARY | 2025-03-09 22:33 | XMS_ITS | Encounter Summary ---
Author Organization [email or web address] Address [address] [place] [address] Care Team Providers Care Milieu Therapist Name Role Phone Marcelo Douglass MD Primary Care Prov ider Reason for Visit * Reason Onset Date Comments OS appt 01/07/2025 Encounter Details Date Type Department Care Team ([facility] Contact Info) Description 01/07/2025 Telephone [facility] ADULT DENTAL [address] [place] [address] Kana Vance, DMD [address] [place] [address] OS appt Social History Tobacco Use Types Packs/Day Years [...] Miscellaneous Notes * Telephone Encounter - Criss Wisdom - 01/07/2025 12:21 PM EDT Patient called in inquiring of Oral Surgery appointment. Active requested since 07/2023. Patient has not been seen since 02/2024. Scheduled appointment for patient on 01/19 for cleaning and exam. Patient has been informed of possibility of scheduling for January. Patient is aware that OS schedule is wait listed due to limited provider schedule. documented in this encounter Plan of Treatment Upcoming Encounters Date Type Department Care Team (Late st Contact Info) Description 03/18/2025 8:45 AM EST Office Visit [facility] ADULT DENTAL [address] [place] [address] Elsie Abreu documented as of this encounter Visit Diagnoses Not on filedocumented in this encounter Additional Health Concerns Assessment Noted Time PHQ-9 Depression Total Score: 1 12/29/19 25 3:10 PM EDT documented as of this encounter Care Teams Milieu Therapist Relationship Specialty Start Date End Date Marcelo Douglass MD [address] [place] [address] PCP - General Internal Medicine 04/23/19 documented as of this encounter
== END 2025-03-10 | disposition left against medical advice (07) ==
LOC: HO.ED 22:30
PROVIDERS: Physician Assistant; Emergency Provider Emergency Medicine; PCP Internal Medicine
DX: Z32.01 Encounter for pregnancy test, result positive (principal); Z79.899 Other long term (current) drug therapy
CPT/HCPCS: 36415; 84702; 99281; 99283